=== PATIENT | male | born 1955 | race African-American/Black ===

== ENCOUNTER 2017-02-11 04:12 | Emergency (ER) | payer MEDICAID ==
[~2017-02-11] VITALS: Ht 180.3 cm; Wt 68.0 kg
[~2017-02-11 04:12] MED LIST: ALBU8.5H8 INH; CARI350T27 PO; DITXL5 PO; FOLI-43 PO; GABA-531 PO; HYDR-4100 PO; LISI10TA5 PO; MULT PO; NEU300 PO; PRO40 PO; SUCR1TAB78 PO; THIA100T13 PO
[2017-02-11 04:22] VITALS: BP_SYST 132
[2017-02-11] MEDS ORDERED: HYDROcodone/ACETAMIN 10-325 MG TAB PO ONE (05:15)
[2017-02-11 06:39] VITALS: BP_SYST 127
== END 2017-02-11 06:39 | disposition home or self-care (01) ==
LOC: SED 04:12
DX: S22.32XA Fracture of one rib, left side, initial encounter for closed fracture (principal); M54.2 Cervicalgia; J44.9 Chronic obstructive pulmonary disease, unspecified; K21.9 Gastro-esophageal reflux disease without esophagitis; I10 Essential (primary) hypertension; Z85.46 Personal history of malignant neoplasm of prostate; Z79.899 Other long term (current) drug therapy; V89.2XXA Person injured in unspecified motor-vehicle accident, traffic, initial encounter; Y93.89 Activity, other specified; Y92.410 Unspecified street and highway as the place of occurrence of the external cause; Y99.8 Other external cause status
CPT/HCPCS: 71010; 71100; 72125-TC; 99284

== ENCOUNTER 2017-09-24 17:32 | Emergency (ER) | payer MEDICAID ==
[~2017-09-24] VITALS: Ht 180.3 cm; Wt 68.0 kg
[2017-09-24 17:32] VITALS: BP_SYST 108
[2017-09-24] MEDS ORDERED: LORazepam 1 MG TABLET PO ONE (17:45)
[2017-09-24 18:05] LABS: BASOPHILS # (AUTO) 0.2 K/uL (0.0-0.2); BASOPHILS % (AUTO) 1.7 % (0.0-2.0); EOSINOPHILS % (AUTO) 0.4 % (0.0-4.0); HEMATOCRIT 43.5 % (36-54); HEMOGLOBIN 14.4 g/dL (14.0-18.0); LYMPHOCYTES # (AUTO) 2.3 K/uL (1.0-5.5); MEAN CORPUSCULAR HEMOGLOBIN 31 pg (27-31); MEAN CORPUSCULAR HGB CONC 33 % (32-36); MEAN CORPUSCULAR VOLUME 94 fL (79.0-98.0); MONOCYTES # (AUTO) 0.6 K/uL (0.0-1.0); MONOCYTES % (AUTO) 6.1 % (1.7-9.3); NEUTROPHILS # (AUTO) 7.4 K/uL (1.8-7.7); NEUTROPHILS % (AUTO) 69.8 % (40.0-70.0); PLATELET COUNT (AUTO) 227 K/uL (130-430); RED BLOOD CELL COUNT(AUTO) 4.66 MIL/uL (4.2-6.2); RED CELL DISTRIBUTION WIDTH 14.3 % (9.0-15.0); WHITE BLOOD COUNT (AUTO) 10.5 K/uL (4.8-10.8)
[2017-09-24] MEDS ORDERED: WELSR150 PO (18:11)
[2017-09-24 18:40] LABS: CALCIUM 8.7 mg/dL (8.4-11.0); CREATININE 0.84 mg/dL (0.55-1.30)
[2017-09-24 18:45] LABS: ALBUMIN 3.5 g/dL (3.4-4.8); TOTAL BILIRUBIN 0.3 mg/dL (0.0-1.0)
[2017-09-24] MEDS ORDERED: PANTOPRAZOLE SODIUM 40 MG/VIAL (PROTONIX) IVP ONE (19:00)
[2017-09-24] MEDS ORDERED: levETIRAcetam 1,000 MG in NS 100 ML IV ONE (19:00)
[2017-09-24] MEDS ORDERED: D5NS 1,000 ML IV ONE (19:00)
[2017-09-24 20:43] VITALS: BP_SYST 112
== END 2017-09-24 20:43 | disposition home or self-care (01) ==
LOC: SED 17:32
DX: E87.1 Hypo-osmolality and hyponatremia (principal); K29.70 Gastritis, unspecified, without bleeding; R03.0 Elevated blood-pressure reading, without diagnosis of hypertension; J44.9 Chronic obstructive pulmonary disease, unspecified; I10 Essential (primary) hypertension; Z85.46 Personal history of malignant neoplasm of prostate
CPT/HCPCS: 36415; 80053; 85025; 93005; 96365; 96375; 99285; C9113; G0482; J1953; J7060

== ENCOUNTER 2018-06-16 17:40 | Inpatient (IN) | payer OTHER, MEDICAID ==
[~2018-06-16] VITALS: Ht 180.3 cm; Wt 63.0 kg
[~2018-06-16 17:40] MED LIST changes: -FOLI-43 PO; -SUCR1TAB78 PO; -THIA100T13 PO; +WELSR150 PO
[2018-06-16 17:54] VITALS: BP_SYST 116
[2018-06-16] MEDS ORDERED: NACL 0.9% 1,000 ML IV ONE (18:15)
[2018-06-16 18:56] LABS: ANION GAP 9 (5-15); CALCIUM 8.8 mg/dL (8.4-11.0); CHLORIDE 95 mmol/L (98-107); CREATININE 0.92 mg/dL (0.55-1.30); GLUCOSE 110 mg/dL (70-99); POTASSIUM 3.3 mmol/L (3.5-5.1); SODIUM SERUM 131 mmol/L (136-145); UREA NITROGEN, BLOOD 13 mg/dL (8-21)
[2018-06-16 18:57] LABS: INR 0.9 (0.80-1.20); PROTHROMBIN TIME 9.7 SECS (9.5-12.5)
[2018-06-16 18:59] LABS: GFR AFRICAN AMERICAN 108 mL/min (>90)
[2018-06-16 19:02] LABS: ALANINE AMINOTRANSFERASE 169 U/L (12-78); ALBUMIN 2.2 g/dL (3.4-4.8); ASPARTATE AMINOTRANSFERASE 304 U/L (10-37); TOTAL BILIRUBIN 0.4 mg/dL (0.0-1.0)
[2018-06-16 19:06] LABS: ACETAMINOPHEN < 1 ug/mL (1-30); ALCOHOL, BLOOD < 3 mg/dL (<10)
[2018-06-16 19:51] LABS: BILIRUBIN,URINE 1+ (NEGATIVE); BLOOD, URINE 1+ (NEGATIVE); CLARITY/URINE CLOUDY (CLEAR); GLUCOSE,URINE NEGATIVE (NEGATIVE); KETONES,URINE NEGATIVE (NEGATIVE); LEUKOCYTE ESTERASE ,URINE 3+ (NEGATIVE); NITRITE, URINE POSITIVE (NEGATIVE); PROTEIN URINE TRACE (NEGATIVE)
[2018-06-16 19:57] LABS: HEMATOCRIT 41.5 % (36-54); HEMOGLOBIN 13.8 g/dL (14.0-18.0); MEAN CORPUSCULAR HEMOGLOBIN 31 pg (27-31); MEAN CORPUSCULAR HGB CONC 33 % (32-36); MEAN CORPUSCULAR VOLUME 92 fL (79.0-98.0); PLATELET COUNT (AUTO) 119 K/uL (130-430); RED BLOOD CELL COUNT(AUTO) 4.51 MIL/uL (4.2-6.2); WHITE BLOOD COUNT (AUTO) 4.4 K/uL (4.8-10.8)
[2018-06-16 19:58] LABS: BASOPHILS % (AUTO) 0.8 % (0.0-2.0); EOSINOPHILS % (AUTO) 0.7 % (0.0-4.0); LYMPHOCYTES # (AUTO) 0.7 K/uL (1.0-5.5); LYMPHOCYTES % (AUTO) 17.1 % (20.5-51.5); MONOCYTES # (AUTO) 0.6 K/uL (0.0-1.0); MONOCYTES % (AUTO) 13.4 % (1.7-9.3)
[2018-06-16 20:04] LABS: BARBITURATE, URINE NEGATIVE (NEG <=200); BENZODIAZEPINE, URINE POSITIVE (NEG <=150); CANNABINOID, URINE POSITIVE (NEG <=50); COCAINE, URINE NEGATIVE (NEG <=150); METHAMPHETAMINES SCREEN,URINE NEGATIVE (NEG <=500); OPIATE, URINE NEGATIVE (NEG <=100); PHENCYCLIDINE SCREEN,URINE NEGATIVE (NEG <=25); UR TRICYCLIC ANTIDEPRESSANTS NEGATIVE (NEG <=300); URINE AMPHETAMINE NEGATIVE (NEG <=500); URINE METHADONE NEGATIVE (NEG <=200); URINE OXYCODONE SCREEN NEGATIVE (NEG <=100); URINE PROPOXYPHENE SCREEN NEGATIVE (NEG <=300)
[2018-06-16 20:08] LABS: COLOR,URINE AMBER (YELLOW)
[2018-06-16] MEDS ORDERED: POTASSIUM CHLORIDE 20 MEQ TAB.PRT.SR PO ONE (20:15)
[2018-06-16 20:35] LABS: BACTERIA,URINE MANY /HPF (None Seen); MUCUS,URINE None Seen /LPF (None Seen); WBC,URINE 50-80 /HPF (0-3)
[2018-06-16] MEDS ORDERED: cefTRIAXone 2 GM VIAL ONE (21:25)
[2018-06-16] MEDS ORDERED: ACETAMINOPHEN 650 MG/20.3 ML UDC PO PRN (22:00)
[2018-06-16] MEDS ORDERED: HYDROcodone/ACETAMIN 10-325 MG TAB PO PRN (22:00)
[2018-06-16 22:31] VITALS: BP_SYST 131
[2018-06-16 23:12] VITALS: BP_SYST 131
[2018-06-16] MEDS: IPRATROPIUM/ALBUTEROL SULFATE 3 ML AMPUL.NEB (DUONEB) INH SCH (23:25)
[2018-06-16 23:30] VITALS: BP_SYST 130
[2018-06-17] MEDS: PANTOPRAZOLE SODIUM 40 MG TAB PO SCH (06:10)
[2018-06-17] MEDS: GABAPENTIN 300 MG CAPSULE PO SCH ×3 (06:11→20:55)
[2018-06-17] MEDS: IPRATROPIUM/ALBUTEROL SULFATE 3 ML AMPUL.NEB (DUONEB) INH SCH ×3 (07:29→23:21)
[2018-06-17 07:32] LABS: ALBUMIN 2.1 g/dL (3.4-4.8); BILIRUBIN,DIRECT 0.2 mg/dL (0.0-0.3); CALCIUM 8.3 mg/dL (8.4-11.0); CREATININE 0.7 mg/dL (0.55-1.30); POTASSIUM 3.9 mmol/L (3.5-5.1); THYROID STIMULATING HORMONE 0.86 uIu/mL (0.34-4.82); TOTAL BILIRUBIN 0.3 mg/dL (0.0-1.0)
[2018-06-17 07:56] LABS: WHITE BLOOD COUNT (AUTO) 4.2 K/uL (4.8-10.8)
[2018-06-17 07:57] LABS: EOSINOPHILS % (AUTO) 0.8 % (0.0-4.0); HEMATOCRIT 37.7 % (36-54); HEMOGLOBIN 12.4 g/dL (14.0-18.0); LYMPHOCYTES # (AUTO) 0.8 K/uL (1.0-5.5); LYMPHOCYTES % (AUTO) 18.8 % (20.5-51.5); MEAN CORPUSCULAR HEMOGLOBIN 30 pg (27-31); MEAN CORPUSCULAR HGB CONC 33 % (32-36); MEAN CORPUSCULAR VOLUME 91 fL (79.0-98.0); MONOCYTES # (AUTO) 0.7 K/uL (0.0-1.0); NEUTROPHILS # (AUTO) 2.6 K/uL (1.8-7.7); NEUTROPHILS % (AUTO) 62.4 % (40.0-70.0); PLATELET COUNT (AUTO) 130 K/uL (130-430); RED BLOOD CELL COUNT(AUTO) 4.12 MIL/uL (4.2-6.2)
[2018-06-17] MEDS: buPROPion HCL 150 MG TABLET.SA PO SCH ×2 (08:58→20:55)
[2018-06-17] MEDS: LISINOPRIL 10 MG TABLET (PRINIVIL) PO SCH (08:58)
[2018-06-17] MEDS: OXYBUTYNIN CHLORIDE 5 MG TABLET PO SCH ×4 (08:58→20:55)
[2018-06-17 09:00] VITALS: BP_SYST 104
[2018-06-17 11:26] VITALS: BP_SYST 113
[2018-06-17 15:25] VITALS: BP_SYST 104
[2018-06-17] MEDS ORDERED: GENTAMICIN 100 mg/50 mL NS 50 ML IV ONE (16:15)
[2018-06-17 20:00] VITALS: BP_SYST 114
[2018-06-18 00:21] VITALS: BP_SYST 130
[2018-06-18] MEDS: IPRATROPIUM/ALBUTEROL SULFATE 3 ML AMPUL.NEB (DUONEB) INH SCH ×3 (06:00→22:00)
[2018-06-18 06:09] LABS: CALCIUM 8.7 mg/dL (8.4-11.0); CREATININE 0.68 mg/dL (0.55-1.30); POTASSIUM 3.9 mmol/L (3.5-5.1)
[2018-06-18 06:22] LABS: BILIRUBIN,DIRECT 0.2 mg/dL (0.0-0.3); TOTAL BILIRUBIN 0.2 mg/dL (0.0-1.0)
[2018-06-18] MEDS: PANTOPRAZOLE SODIUM 40 MG TAB PO SCH (06:22)
[2018-06-18] MEDS: GABAPENTIN 300 MG CAPSULE PO SCH ×3 (06:22→20:55)
[2018-06-18 07:47] LABS: HEMATOCRIT 35.4 % (36-54); HEMOGLOBIN 11.8 g/dL (14.0-18.0); MEAN CORPUSCULAR VOLUME 91 fL (79.0-98.0); RED BLOOD CELL COUNT(AUTO) 3.88 MIL/uL (4.2-6.2); WHITE BLOOD COUNT (AUTO) 5.3 K/uL (4.8-10.8)
[2018-06-18 07:48] LABS: MEAN CORPUSCULAR HEMOGLOBIN 30 pg (27-31); MEAN CORPUSCULAR HGB CONC 33 % (32-36); PLATELET COUNT (AUTO) 162 K/uL (130-430)
[2018-06-18 07:49] LABS: BASOPHILS % (AUTO) 0.8 % (0.0-2.0); EOSINOPHILS # (AUTO) 0.1 K/uL (0.0-0.4); EOSINOPHILS % (AUTO) 1.9 % (0.0-4.0); LYMPHOCYTES # (AUTO) 1.4 K/uL (1.0-5.5); LYMPHOCYTES % (AUTO) 27.1 % (20.5-51.5); MONOCYTES % (AUTO) 18.1 % (1.7-9.3); NEUTROPHILS # (AUTO) 2.7 K/uL (1.8-7.7); NEUTROPHILS % (AUTO) 52.1 % (40.0-70.0)
[2018-06-18 08:21] LABS: CKMB RELATIVE INDEX 0.3 (0.0-2.9)
[2018-06-18 09:00] VITALS: BP_SYST 110
[2018-06-18] MEDS: buPROPion HCL 150 MG TABLET.SA PO SCH ×2 (09:00→20:55)
[2018-06-18] MEDS: OXYBUTYNIN CHLORIDE 5 MG TABLET PO SCH ×4 (09:01→20:55)
[2018-06-18] MEDS: LISINOPRIL 10 MG TABLET (PRINIVIL) PO SCH (09:03)
[2018-06-18 12:33] VITALS: BP_SYST 117
[2018-06-18 16:05] VITALS: BP_SYST 126
[2018-06-18 20:00] VITALS: BP_SYST 104
[2018-06-19 00:56] VITALS: BP_SYST 115
[2018-06-19] MEDS: PANTOPRAZOLE SODIUM 40 MG TAB PO SCH (06:06)
[2018-06-19] MEDS: GABAPENTIN 300 MG CAPSULE PO SCH ×3 (06:06→21:02)
[2018-06-19] MEDS: IPRATROPIUM/ALBUTEROL SULFATE 3 ML AMPUL.NEB (DUONEB) INH SCH ×2 (07:30→14:00)
[2018-06-19 08:00] VITALS: BP_SYST 137
[2018-06-19 08:08] LABS: HEPATITIS A AB, IgM Negative (Negative); HEPATITIS B CORE AB, IgM Negative (Negative); HEPATITIS B SURFACE AG Negative (Negative)
[2018-06-19] MEDS: buPROPion HCL 150 MG TABLET.SA PO SCH ×2 (09:08→21:02)
[2018-06-19] MEDS: OXYBUTYNIN CHLORIDE 5 MG TABLET PO SCH ×4 (09:08→21:02)
[2018-06-19] MEDS: LISINOPRIL 10 MG TABLET (PRINIVIL) PO SCH (09:08)
[2018-06-19 13:06] VITALS: BP_SYST 116
[2018-06-19 15:27] VITALS: BP_SYST 116
[2018-06-19] MEDS ORDERED: GADOPENTETATE DIMEGLUMINE 15 ML VIAL IV ONE (16:24)
[2018-06-19 16:47] VITALS: BP_SYST 116
[2018-06-19 20:00] VITALS: BP_SYST 135
[2018-06-20 00:22] VITALS: BP_SYST 128
[2018-06-20] MEDS: IPRATROPIUM/ALBUTEROL SULFATE 3 ML AMPUL.NEB (DUONEB) INH SCH ×3 (06:00→23:30)
[2018-06-20] MEDS: GABAPENTIN 300 MG CAPSULE PO SCH ×3 (06:07→21:24)
[2018-06-20] MEDS: PANTOPRAZOLE SODIUM 40 MG TAB PO SCH (06:07)
[2018-06-20 06:15] LABS: ALBUMIN 2.3 g/dL (3.4-4.8); BILIRUBIN,DIRECT 0.1 mg/dL (0.0-0.3); CALCIUM 9.1 mg/dL (8.4-11.0); CREATININE 0.63 mg/dL (0.55-1.30); POTASSIUM 4.2 mmol/L (3.5-5.1); TOTAL BILIRUBIN 0.3 mg/dL (0.0-1.0)
[2018-06-20 08:19] LABS: HEMATOCRIT 36.1 % (36-54); LYMPHOCYTES % (AUTO) 34.1 % (20.5-51.5); MEAN CORPUSCULAR HEMOGLOBIN 30 pg (27-31); MEAN CORPUSCULAR HGB CONC 33 % (32-36); MEAN CORPUSCULAR VOLUME 91 fL (79.0-98.0); PLATELET COUNT (AUTO) 251 K/uL (130-430); RED BLOOD CELL COUNT(AUTO) 3.97 MIL/uL (4.2-6.2); RED CELL DISTRIBUTION WIDTH 14.7 % (9.0-15.0); WHITE BLOOD COUNT (AUTO) 6.5 K/uL (4.8-10.8)
[2018-06-20 08:20] LABS: BASOPHILS # (AUTO) 0.1 K/uL (0.0-0.2); BASOPHILS % (AUTO) 0.9 % (0.0-2.0); EOSINOPHILS # (AUTO) 0.1 K/uL (0.0-0.4); LYMPHOCYTES # (AUTO) 2.2 K/uL (1.0-5.5); MONOCYTES # (AUTO) 0.7 K/uL (0.0-1.0); NEUTROPHILS # (AUTO) 3.4 K/uL (1.8-7.7)
[2018-06-20 08:55] VITALS: BP_SYST 109
[2018-06-20] MEDS: OXYBUTYNIN CHLORIDE 5 MG TABLET PO SCH ×4 (09:14→21:24)
[2018-06-20] MEDS: buPROPion HCL 150 MG TABLET.SA PO SCH ×2 (09:15→21:24)
[2018-06-20] MEDS: LISINOPRIL 10 MG TABLET (PRINIVIL) PO SCH (09:15)
[2018-06-20 11:51] VITALS: BP_SYST 126
[2018-06-20 15:20] VITALS: BP_SYST 107
[2018-06-20 20:06] VITALS: BP_SYST 127
[2018-06-21 01:21] VITALS: BP_SYST 106
[2018-06-21] MEDS: PANTOPRAZOLE SODIUM 40 MG TAB PO SCH (06:32)
[2018-06-21] MEDS: GABAPENTIN 300 MG CAPSULE PO SCH (06:33)
[2018-06-21] MEDS: IPRATROPIUM/ALBUTEROL SULFATE 3 ML AMPUL.NEB (DUONEB) INH SCH (07:35)
[2018-06-21 07:50] LABS: ALBUMIN 2.2 g/dL (3.4-4.8); BILIRUBIN,DIRECT 0.1 mg/dL (0.0-0.3); TOTAL BILIRUBIN 0.2 mg/dL (0.0-1.0)
[2018-06-21 08:13] VITALS: BP_SYST 106
[2018-06-21] MEDS: OXYBUTYNIN CHLORIDE 5 MG TABLET PO SCH ×2 (08:28→12:27)
[2018-06-21] MEDS: LISINOPRIL 10 MG TABLET (PRINIVIL) PO SCH (08:28)
[2018-06-21] MEDS: buPROPion HCL 150 MG TABLET.SA PO SCH (08:29)
[2018-06-21 08:30] VITALS: BP_SYST 118
[2018-06-21 11:27] VITALS: BP_SYST 113
[2018-06-21] MEDS ORDERED: CIPR-211 PO (11:35)
[2018-06-21 12:36] VITALS: BP_SYST 113
== END 2018-06-21 13:30 | DRG 871 ==
LOC: SED 17:40 → SMU 21:52
PROVIDERS: ADMIT Internal Medicine; ATTEND Internal Medicine
DX: A41.51 Sepsis due to Escherichia coli [E. coli] (principal); E43 Unspecified severe protein-calorie malnutrition; N10 Acute pyelonephritis; J44.1 Chronic obstructive pulmonary disease with (acute) exacerbation; Z68.1 Body mass index [BMI] 19.9 or less, adult; E87.8 Other disorders of electrolyte and fluid balance, not elsewhere classified; G72.9 Myopathy, unspecified; K22.5 Diverticulum of esophagus, acquired; N28.1 Cyst of kidney, acquired; E78.00 Pure hypercholesterolemia, unspecified; G62.9 Polyneuropathy, unspecified; I10 Essential (primary) hypertension; K21.9 Gastro-esophageal reflux disease without esophagitis; N31.9 Neuromuscular dysfunction of bladder, unspecified; F17.210 Nicotine dependence, cigarettes, uncomplicated; N40.0 Benign prostatic hyperplasia without lower urinary tract symptoms; R13.10 Dysphagia, unspecified; Z90.79 Acquired absence of other genital organ(s)
CPT/HCPCS: 36415; 71045; 72158; 74220-TC; 76700-TC; 76770; 80048; 80053; 80074; 80076; 80307; 81000-TC; 82085; 82105; 82140-TC; 82550-TC; 82553-TC; 82607; 82746; 83605; 83735-TC; 84443-TC; 84484; 85025; 85610-TC; 85651-TC; 85730-TC; 86308-TC; 86665; 86694; 87040-TC; 87086; 87186-TC; 93005; 94640; 94760; 96361; 96365; 97110-GP; 97116-GP; 97530-GP; 99285; A9579; G0480; G0481; G0482; J0696; J1580; J7060; J7620

== ENCOUNTER 2019-03-07 13:59 | Inpatient (IN) | payer OTHER, MEDICAID ==
[~2019-03-07] VITALS: Ht 180.3 cm; Wt 73.0 kg
[~2019-03-07 13:59] MED LIST changes: -CARI350T27 PO; +CIPR-211 PO
[2019-03-07 14:32] VITALS: BP_SYST 98
[2019-03-07] MEDS ORDERED: NACL 0.9% 1,000 ML IV ONE (14:45)
[2019-03-07 15:14] LABS: BASOPHILS # (AUTO) 0.1 K/uL (0.0-0.2); BASOPHILS % (AUTO) 0.7 % (0.0-2.0); EOSINOPHILS # (AUTO) 0.1 K/uL (0.0-0.4); EOSINOPHILS % (AUTO) 0.6 % (0.0-4.0); HEMATOCRIT 35.5 % (36-54); HEMOGLOBIN 11.4 g/dL (14.0-18.0); LYMPHOCYTES # (AUTO) 1.2 K/uL (1.0-5.5); LYMPHOCYTES % (AUTO) 8.6 % (20.5-51.5); MEAN CORPUSCULAR HEMOGLOBIN 27 pg (27-31); MEAN CORPUSCULAR HGB CONC 32 % (32-36); MEAN CORPUSCULAR VOLUME 84 fL (79.0-98.0); MONOCYTES # (AUTO) 0.6 K/uL (0.0-1.0); MONOCYTES % (AUTO) 4.2 % (1.7-9.3); NEUTROPHILS # (AUTO) 12.3 K/uL (1.8-7.7); NEUTROPHILS % (AUTO) 85.9 % (40.0-70.0); PLATELET COUNT (AUTO) 221 K/uL (130-430); RED BLOOD CELL COUNT(AUTO) 4.23 MIL/uL (4.2-6.2); RED CELL DISTRIBUTION WIDTH 16.1 % (9.0-15.0); WHITE BLOOD COUNT (AUTO) 14.3 K/uL (4.8-10.8)
[2019-03-07 15:26] LABS: CALCIUM 8.9 mg/dL (8.4-11.0); CREATININE 1.54 mg/dL (0.55-1.30); POTASSIUM 4.3 mmol/L (3.5-5.1)
[2019-03-07 15:32] LABS: ALBUMIN 3.3 g/dL (3.4-4.8); TOTAL BILIRUBIN 0.2 mg/dL (0.0-1.0)
[2019-03-07] MEDS ORDERED: IOHEXOL 350 mgI/mL, 150 ML INFUS..BTL IV ONE (17:19)
[2019-03-07] MEDS ORDERED: fentaNYL CITRATE/PF 100 MCG/2 ML AMP IVP ONE (18:00)
[2019-03-07] MEDS ORDERED: ALBUTEROL MDI INHALATION 8 GM INH INH SCH (20:15)
[2019-03-07] MEDS ORDERED: HEPARIN 25,000 UNITS/D5W 250ML 250 ML IV PRN (20:15)
[2019-03-07] MEDS ORDERED: DOCUSATE SODIUM 100 MG CAPSULE PO PRN (20:15)
[2019-03-07] MEDS ORDERED: LORazepam 2 MG/ML VIAL IVP PRN (20:15)
[2019-03-07] MEDS ORDERED: ONDANSETRON HCL 4 MG/2 ML VIAL IVP PRN (20:15)
[2019-03-07] MEDS ORDERED: POTASSIUM CHLORIDE 20 MEQ TAB.PRT.SR PO PRN (20:15)
[2019-03-07] MEDS ORDERED: ZOLPIDEM TARTRATE 5 MG TABLET PO PRN (20:15)
[2019-03-07] MEDS ORDERED: MAGNESIUM SULFATE 50 ML IV PRN (20:15)
[2019-03-07] MEDS ORDERED: MUPIROCIN 2% TOPICAL OINTMENT 22 GM NS PRN (20:15)
[2019-03-07] MEDS ORDERED: MORPHINE 2 MG/ML INJ. SYRINGE IVP PRN ×2 (20:15)
[2019-03-07] MEDS ORDERED: ACETAMINOPHEN 325 MG TABLET PO PRN (20:15)
[2019-03-07] MEDS ORDERED: ACETAMINOPHEN 500 MG TABLET PO ONE (20:45)
[2019-03-07] MEDS ORDERED: OXYBUTYNIN CHLORIDE 5 MG XL TAB PO SCH (21:00)
[2019-03-07] MEDS: NACL 0.9% 1,000 ML IV SCH (21:04)
[2019-03-07] MEDS ORDERED: HEPARIN SODIUM,PORCINE 5000 UNITS/ML VIAL ONE (21:14)
[2019-03-07] MEDS: IPRATROPIUM/ALBUTEROL SULFATE 3 ML AMPUL.NEB (DUONEB) INH SCH (21:40)
[2019-03-07 21:59] VITALS: BP_SYST 98
[2019-03-07 23:00] LABS: INR 1.1 (0.80-1.20); PROTHROMBIN TIME 10.9 SECS (9.5-12.5)
[2019-03-08 03:02] VITALS: BP_SYST 142
[2019-03-08] MEDS ORDERED: HEPARIN SODIUM,PORCINE 5000 UNITS/ML VIAL SUBCUT SCH ×2 (05:00→06:00)
[2019-03-08] MEDS: NACL 0.9% 1,000 ML IV SCH ×2 (05:17→15:07)
[2019-03-08] MEDS: PANTOPRAZOLE SODIUM 40 MG TAB PO SCH (06:39)
[2019-03-08 07:25] LABS: BASOPHILS # (AUTO) 0.1 K/uL (0.0-0.2); BASOPHILS % (AUTO) 0.4 % (0.0-2.0); EOSINOPHILS # (AUTO) 0.3 K/uL (0.0-0.4); EOSINOPHILS % (AUTO) 1.9 % (0.0-4.0); HEMATOCRIT 29.9 % (36-54); HEMOGLOBIN 9.7 g/dL (14.0-18.0); MEAN CORPUSCULAR HEMOGLOBIN 27 pg (27-31); MEAN CORPUSCULAR HGB CONC 33 % (32-36); MEAN CORPUSCULAR VOLUME 83 fL (79.0-98.0); MONOCYTES # (AUTO) 0.5 K/uL (0.0-1.0); NEUTROPHILS # (AUTO) 10.6 K/uL (1.8-7.7); NEUTROPHILS % (AUTO) 78.7 % (40.0-70.0); PLATELET COUNT (AUTO) 190 K/uL (130-430); RED BLOOD CELL COUNT(AUTO) 3.59 MIL/uL (4.2-6.2); RED CELL DISTRIBUTION WIDTH 15.9 % (9.0-15.0); WHITE BLOOD COUNT (AUTO) 13.5 K/uL (4.8-10.8)
[2019-03-08 07:40] LABS: CALCIUM 8.3 mg/dL (8.4-11.0); CREATININE 0.87 mg/dL (0.55-1.30); POTASSIUM 4.3 mmol/L (3.5-5.1)
[2019-03-08 08:00] VITALS: BP_SYST 148
[2019-03-08] MEDS: IPRATROPIUM/ALBUTEROL SULFATE 3 ML AMPUL.NEB (DUONEB) INH SCH ×3 (08:01→20:03)
[2019-03-08] MEDS ORDERED: GABAPENTIN 300 MG CAPSULE PO ONE (10:15)
[2019-03-08] MEDS ORDERED: OXYBUTYNIN CHLORIDE 5 MG TABLET PO ONE (10:30)
[2019-03-08 12:00] VITALS: BP_SYST 141
[2019-03-08] MEDS ORDERED: ENOXAPARIN SODIUM 40 MG/0.4 ML SYRINGE SUBCUT ONE (12:00)
[2019-03-08] MEDS: cefTRIAXone 1 GM in D5W 50 ML IV SCH (13:16)
[2019-03-08] MEDS: OXYBUTYNIN CHLORIDE 5 MG TABLET PO SCH ×3 (13:16→21:11)
[2019-03-08] MEDS: GABAPENTIN 300 MG CAPSULE PO SCH ×2 (15:06→21:10)
[2019-03-08] MEDS: MORPHINE 4 MG/ML INJ. SYRINGE IVP PRN ×2 (15:12→22:45)
[2019-03-08 16:00] VITALS: BP_SYST 157
[2019-03-08 17:22] LABS: BILIRUBIN,URINE NEGATIVE (NEGATIVE); BLOOD, URINE NEGATIVE (NEGATIVE); COLOR,URINE YELLOW (YELLOW); GLUCOSE,URINE NEGATIVE (NEGATIVE); KETONES,URINE NEGATIVE (NEGATIVE); LEUKOCYTE ESTERASE ,URINE TRACE (NEGATIVE); NITRITE, URINE NEGATIVE (NEGATIVE); PH,URINE 6.5 (5.0-8.0); PROTEIN URINE NEGATIVE (NEGATIVE); UROBILINOGEN,URINE 0.2 (0.2-1.0)
[2019-03-08 17:51] LABS: CLARITY/URINE SLIGHTLY HAZY (CLEAR)
[2019-03-08 18:22] LABS: BACTERIA,URINE MANY /HPF (None Seen); MUCUS,URINE None Seen /LPF (None Seen); RBC,URINE NONE SEEN /HPF (0-3)
[2019-03-08 20:00] VITALS: BP_SYST 119
[2019-03-08] MEDS: buPROPion HCL 150 MG TABLET.SA PO SCH ×2 (21:11→21:13)
[2019-03-09] MEDS: NACL 0.9% 1,000 ML IV SCH ×2 (00:03→13:18)
[2019-03-09 00:26] VITALS: BP_SYST 126
[2019-03-09] MEDS: PANTOPRAZOLE SODIUM 40 MG TAB PO SCH (06:06)
[2019-03-09 08:08] LABS: BASOPHILS # (AUTO) 0.1 K/uL (0.0-0.2); BASOPHILS % (AUTO) 0.8 % (0.0-2.0); EOSINOPHILS # (AUTO) 0.3 K/uL (0.0-0.4); EOSINOPHILS % (AUTO) 2.8 % (0.0-4.0); HEMATOCRIT 30.2 % (36-54); LYMPHOCYTES # (AUTO) 1.5 K/uL (1.0-5.5); LYMPHOCYTES % (AUTO) 16.7 % (20.5-51.5); MEAN CORPUSCULAR HEMOGLOBIN 28 pg (27-31); MEAN CORPUSCULAR HGB CONC 33 % (32-36); MEAN CORPUSCULAR VOLUME 83 fL (79.0-98.0); MONOCYTES # (AUTO) 0.5 K/uL (0.0-1.0); MONOCYTES % (AUTO) 5.8 % (1.7-9.3); NEUTROPHILS # (AUTO) 6.5 K/uL (1.8-7.7); NEUTROPHILS % (AUTO) 73.9 % (40.0-70.0); PLATELET COUNT (AUTO) 199 K/uL (130-430); RED BLOOD CELL COUNT(AUTO) 3.65 MIL/uL (4.2-6.2); RED CELL DISTRIBUTION WIDTH 15.3 % (9.0-15.0); WHITE BLOOD COUNT (AUTO) 8.8 K/uL (4.8-10.8)
[2019-03-09 08:30] VITALS: BP_SYST 154
[2019-03-09] MEDS: IPRATROPIUM/ALBUTEROL SULFATE 3 ML AMPUL.NEB (DUONEB) INH SCH (09:00)
[2019-03-09 09:01] LABS: CALCIUM 8.7 mg/dL (8.4-11.0); CREATININE 0.72 mg/dL (0.55-1.30)
[2019-03-09] MEDS: OXYBUTYNIN CHLORIDE 5 MG TABLET PO SCH ×4 (09:16→21:30)
[2019-03-09] MEDS: GABAPENTIN 300 MG CAPSULE PO SCH ×3 (09:16→21:29)
[2019-03-09] MEDS: buPROPion HCL 150 MG TABLET.SA PO SCH ×2 (09:16→21:29)
[2019-03-09] MEDS: ENOXAPARIN SODIUM 40 MG/0.4 ML SYRINGE SUBCUT SCH (09:17)
[2019-03-09] MEDS: MORPHINE 4 MG/ML INJ. SYRINGE IVP PRN ×3 (09:27→22:23)
[2019-03-09 12:49] VITALS: BP_SYST 146
[2019-03-09] MEDS: cefTRIAXone 1 GM in D5W 50 ML IV SCH (13:18)
[2019-03-09 16:46] VITALS: BP_SYST 158
[2019-03-09 21:00] VITALS: BP_SYST 151
[2019-03-10 01:18] VITALS: BP_SYST 135
[2019-03-10] MEDS: NACL 0.9% 1,000 ML IV SCH (03:34)
[2019-03-10] MEDS: PANTOPRAZOLE SODIUM 40 MG TAB PO SCH (06:09)
[2019-03-10 08:30] LABS: BASOPHILS # (AUTO) 0.1 K/uL (0.0-0.2); EOSINOPHILS # (AUTO) 0.3 K/uL (0.0-0.4); EOSINOPHILS % (AUTO) 3.8 % (0.0-4.0); HEMATOCRIT 31.7 % (36-54); HEMOGLOBIN 10.4 g/dL (14.0-18.0); LYMPHOCYTES # (AUTO) 1.8 K/uL (1.0-5.5); LYMPHOCYTES % (AUTO) 21.7 % (20.5-51.5); MEAN CORPUSCULAR HEMOGLOBIN 27 pg (27-31); MEAN CORPUSCULAR HGB CONC 33 % (32-36); MEAN CORPUSCULAR VOLUME 83 fL (79.0-98.0); MONOCYTES # (AUTO) 0.5 K/uL (0.0-1.0); MONOCYTES % (AUTO) 6.1 % (1.7-9.3); NEUTROPHILS # (AUTO) 5.4 K/uL (1.8-7.7); NEUTROPHILS % (AUTO) 67.4 % (40.0-70.0); PLATELET COUNT (AUTO) 205 K/uL (130-430); RED BLOOD CELL COUNT(AUTO) 3.84 MIL/uL (4.2-6.2); RED CELL DISTRIBUTION WIDTH 15.1 % (9.0-15.0); WHITE BLOOD COUNT (AUTO) 8.1 K/uL (4.8-10.8)
[2019-03-10 08:41] LABS: CALCIUM 8.6 mg/dL (8.4-11.0); CREATININE 0.67 mg/dL (0.55-1.30)
[2019-03-10] MEDS: ENOXAPARIN SODIUM 40 MG/0.4 ML SYRINGE SUBCUT SCH (08:54)
[2019-03-10] MEDS: GABAPENTIN 300 MG CAPSULE PO SCH ×2 (08:54→15:06)
[2019-03-10] MEDS: buPROPion HCL 150 MG TABLET.SA PO SCH (08:54)
[2019-03-10] MEDS: OXYBUTYNIN CHLORIDE 5 MG TABLET PO SCH ×2 (08:54→13:15)
[2019-03-10] MEDS: MORPHINE 4 MG/ML INJ. SYRINGE IVP PRN (09:04)
[2019-03-10 12:00] VITALS: BP_SYST 159
[2019-03-10] MEDS ORDERED: VANCOMYCIN HCL 1,000 MG in NS 250 ML IV SCH (13:00)
[2019-03-10 16:57] VITALS: BP_SYST 146
[2019-03-10] MEDS ORDERED: METOPROLOL TARTRATE 25 MG TABLET PO SCH (21:00)
[2019-03-13 04:06] LABS: CHLAMYDIA TRACHOMATIS NAA Negative (Negative); NEISSERIA GONORRHOEAE NAA Negative (Negative)
== END 2019-03-10 19:45 | disposition left against medical advice (07) | DRG 177 ==
LOC: SED 13:59 → STU 19:52 → SIC 21:14 → STU 23:58 → SMU 03-09 12:50
PROVIDERS: ADMIT General Practice; ATTEND General Practice
DX: J15.212 Pneumonia due to Methicillin resistant Staphylococcus aureus (principal); N17.0 Acute kidney failure with tubular necrosis; J44.1 Chronic obstructive pulmonary disease with (acute) exacerbation; E44.1 Mild protein-calorie malnutrition; R78.81 Bacteremia; J44.0 Chronic obstructive pulmonary disease with (acute) lower respiratory infection; R65.10 Systemic inflammatory response syndrome (SIRS) of non-infectious origin without acute organ dysfunction; B95.62 Methicillin resistant Staphylococcus aureus infection as the cause of diseases classified elsewhere; D64.9 Anemia, unspecified; G62.9 Polyneuropathy, unspecified; G89.29 Other chronic pain; I10 Essential (primary) hypertension; K21.9 Gastro-esophageal reflux disease without esophagitis; F32.9 Major depressive disorder, single episode, unspecified; M47.816 Spondylosis without myelopathy or radiculopathy, lumbar region; Z68.22 Body mass index [BMI] 22.0-22.9, adult; Z85.46 Personal history of malignant neoplasm of prostate; Z87.891 Personal history of nicotine dependence; Z78.9 Other specified health status; Z79.899 Other long term (current) drug therapy
CPT/HCPCS: 36415; 36600; 71045; 78579; 78580-TC; 80048; 80053; 81000-TC; 82550-TC; 82803-TC; 82962; 83036; 83605; 83735-TC; 83880; 84484; 85025; 85379; 85610-TC; 85730-TC; 86710; 87040-TC; 87081; 87086; 87186-TC; 87491; 87591; 93005; 93306; 93970; 96361; 96374; 99285; A9539; A9540; G0378; J0696; J1644; J1650; J2270; J3010; J3370; J7030; J7050; J7060; J7620; Q9967

== ENCOUNTER 2019-03-13 19:18 | Inpatient (IN) | payer OTHER, MEDICAID ==
[~2019-03-13] VITALS: Ht 180.3 cm; Wt 67.1 kg
[2019-03-13 19:27] VITALS: BP_SYST 147
--- NOTE | 2019-03-13 19:30 | NUR ---
Patient to ER bed 06 for evaluation. Side rails up.
--- NOTE | 2019-03-13 20:10 | NUR ---
ER Dr. Gibson at bedside examining patient.
[2019-03-13] MEDS ORDERED: NACL 0.9% 1,000 ML IV ONE (20:13)
[2019-03-13] MEDS ORDERED: VANCOMYCIN HCL 1,000 MG in D5W 250 ML IV ONE (20:15)
--- NOTE | 2019-03-13 20:30 | NUR ---
X-ray at bedside.
[2019-03-13] MEDS ORDERED: VANCOMYCIN HCL 1000 MG/VIAL IV ONE (21:07)
--- NOTE | 2019-03-13 21:10 | NUR ---
# 22 gauge angiocath placed to LHA. Use of asceptic technique. Opsite placed over site. Blood return noted. Blood for lab drawn from site. Flushed with 10 cc of normal saline. No evidence of infiltration noted. Patient tolerated well.
--- NOTE | 2019-03-13 21:25 | NUR ---
Pt provided with warm blanket, sandwich with chips and fruit, and grape juice.
--- NOTE | 2019-03-13 21:35 | NUR ---
Pt c/o lower back pain 11/21. Dr. Gibson notified.
[2019-03-13 21:39] LABS: BASOPHILS # (AUTO) 0.1 K/uL (0.0-0.2); BASOPHILS % (AUTO) 0.8 % (0.0-2.0); EOSINOPHILS # (AUTO) 0.2 K/uL (0.0-0.4); HEMOGLOBIN 9.9 g/dL (14.0-18.0); LYMPHOCYTES % (AUTO) 23.9 % (20.5-51.5); MEAN CORPUSCULAR HEMOGLOBIN 28 pg (27-31); MEAN CORPUSCULAR HGB CONC 33 % (32-36); MEAN CORPUSCULAR VOLUME 84 fL (79.0-98.0); MONOCYTES # (AUTO) 0.4 K/uL (0.0-1.0); NEUTROPHILS # (AUTO) 5.7 K/uL (1.8-7.7); NEUTROPHILS % (AUTO) 68.3 % (40.0-70.0); PLATELET COUNT (AUTO) 219 K/uL (130-430); RED BLOOD CELL COUNT(AUTO) 3.56 MIL/uL (4.2-6.2); RED CELL DISTRIBUTION WIDTH 15.4 % (9.0-15.0); WHITE BLOOD COUNT (AUTO) 8.3 K/uL (4.8-10.8)
[2019-03-13 21:48] LABS: CALCIUM 8.7 mg/dL (8.4-11.0); CREATININE 0.82 mg/dL (0.55-1.30); POTASSIUM 4.3 mmol/L (3.5-5.1)
[2019-03-13] MEDS ORDERED: KETOROLAC TROMETHAMINE 15 MG VIAL IVP ONE (21:50)
--- NOTE | 2019-03-13 21:50 | NUR ---
Pt resting quietly with eyes closed, even and non-labored respirations, VSS. Toradol held at this time.
[2019-03-13 21:54] LABS: ALBUMIN 2.9 g/dL (3.4-4.8); TOTAL BILIRUBIN 0.1 mg/dL (0.0-1.0)
--- NOTE | 2019-03-13 23:00 | NUR ---
Pt resting quietly with even and nono-labored respirations, VSS. Upon taking V/S, pt awakens and c/o 8/10 to lower back. Pt to be medicated with Toradol as previously ordered.
--- NOTE | 2019-03-13 23:52 | NUR ---
Patient will be admitted to care of Dr. Nicolas Trinidad. Admitted to Med/Surg unit. Will go to room 109A. Belongings list completed. Complete and up to date summary report printed. SBAR report to be given at bedside with opportunity for questions.
[2019-03-13] MEDS ORDERED: KETOROLAC TROMETHAMINE 15 MG VIAL ONE (23:58)
[2019-03-14] VITALS (7 sets, daily range): BP systolic 133–167
--- NOTE | 2019-03-14 00:13 | NUR ---
ADMIT NOTE Received pt from ER to the floor with a diagnosis of SEPSIS. Admission process initiated. patient oriented to pain management, safety and call light-teach back done.
--- NOTE | 2019-03-14 00:35 | NUR ---
CONSULTATION PAGED/CALLED Reason for Consultation: SEPSIS Person Who was Notified: JAIME Consulting Physician: Stabilizer Operator Specialty: Ordering Physician: MORNING CONSULT
--- NOTE | 2019-03-14 03:52 | NUR ---
RN ROUNDS RECEIVE REPORT FROM RICHARD CAPUTO, PATIENT ASLEEP AT THIS TIME, NO SIGNS OF RESPIRATORY DISTRESS AND DISCOMFORT NOTED, BREATHING EVEN AND UNLABORED. IVF INFUSING WELL, PATENCY NOTED. ON CONTACT PRECAUTION. SAFETY PRECAUTIONS IN PLACE, BED ALARM ON. CALL LIGHT WITHIN REACH. WILL CONTINUE TO MONITOR.
--- NOTE | 2019-03-14 05:25 | NUR ---
RN ROUNDS PATIENT ASLEEP AT THIS TIME, NO SIGNS OF RESPIRATORY DISTRESS AND DISCOMFORT NOTED, BREATHING EVEN AND UNLABORED. HOB RAISED. IVF INFUSING WELL, PATENCY NOTED. ON CONTACT PRECAUTION. SAFETY PRECAUTIONS IN PLACE, BED ALARM ON. CALL LIGHT WITHIN REACH. WILL CONTINUE TO MONITOR.
--- NOTE | 2019-03-14 06:54 | NUR ---
CLOSING NOTES Patient asleep at this time. No signs of respiratory distress and discomfort noted. Breathing even and unlabored. Safety precautions in place, bed alarm on. Call light within reach. All needs met throughout the shift. Will continue to monitor until endorse to oncoming shift nurse for continuity of care.
--- NOTE | 2019-03-14 07:20 | NUR ---
Nurse Notes: report from the night nurse Yadi Crooks RN. patient is resting in bed, patient wants to sleep. In no respiratory distress.
[2019-03-14] MEDS ORDERED: HYDROcodone/ACETAMIN 5-325 MG TAB (NORCO/ VICODIN) PO PRN (10:15)
[2019-03-14] MEDS ORDERED: ACETAMINOPHEN 325 MG TABLET PO PRN (10:15)
[2019-03-14] MEDS: HYDROcodone/ACETAMIN 10-325 MG TAB PO PRN ×2 (10:40→18:37)
[2019-03-14] MEDS ORDERED: DOXYCYCLINE HYCLATE 100 MG CAPSULE PO ONE (11:15)
[2019-03-14] MEDS ORDERED: LISINOPRIL 10 MG TABLET (PRINIVIL) PO ONE (12:30)
[2019-03-14] MEDS ORDERED: MULTIVITAMINS TAB 1 TABLET PO ONE (12:30)
[2019-03-14] MEDS ORDERED: buPROPion HCL 150 MG TABLET.SA PO ONE (12:30)
[2019-03-14] MEDS ORDERED: PANTOPRAZOLE SODIUM 40 MG TAB PO ONE (12:30)
[2019-03-14] MEDS: GABAPENTIN 300 MG CAPSULE PO SCH ×2 (12:51→22:46)
--- NOTE | 2019-03-14 12:52 | NUR ---
Nurse Notes: was able to get his medication reconsiliation ordered, was seen by Infection disease MD, said okay to take all his medications.
[2019-03-14] MEDS: OXYBUTYNIN CHLORIDE 5 MG TABLET PO SCH ×3 (12:53→21:00)
[2019-03-14] MEDS ORDERED: VANCOMYCIN HCL 1,250 MG in NS 250 ML IV ONE (13:30)
[2019-03-14] MEDS ORDERED: GABAPENTIN 300 MG CAPSULE PO SCH (15:00)
[2019-03-14] MEDS ORDERED: ONDANSETRON HCL 4 MG/2 ML VIAL IVP PRN (16:45)
[2019-03-14] MEDS ORDERED: ALBUTEROL SULFATE 0.083% 2.5 MG/3 ML VIAL.NEB INH PRN (16:45)
--- NOTE | 2019-03-14 19:30 | NUR ---
Nurse Notes: report given to PATITO Choi. Patient was medicated for pain with [place] 10/325, for pain 11/21/ IV heplock only for IV antibiotics
[2019-03-14] MEDS ORDERED: CIPROFLOXACIN HCL 500 MG TABLET PO SCH (21:00)
[2019-03-14] MEDS ORDERED: NORMAL SALINE 5 ML DISP.SYRIN IVF SCH (22:00)
[2019-03-14] MEDS: DOXYCYCLINE HYCLATE 100 MG CAPSULE PO SCH (22:45)
[2019-03-14] MEDS: NORMAL SALINE 5 ML DISP.SYRIN IVF SCH (22:48)
[2019-03-14] MEDS: buPROPion HCL 150 MG TABLET.SA PO SCH (22:50)
[2019-03-15] VITALS: BP_SYST 133
[2019-03-15] MEDS ORDERED: VANCOMYCIN HCL 500 MG/VIAL IV ONE (02:58)
[2019-03-15] MEDS ORDERED: VANCOMYCIN HCL 1000 MG/VIAL IV ONE (02:58)
[2019-03-15 04:00] VITALS: BP_SYST 133; BP_SYST 142
[2019-03-15] MEDS: NORMAL SALINE 5 ML DISP.SYRIN IVF SCH ×3 (06:00→21:15)
[2019-03-15 07:09] LABS: BASOPHILS # (AUTO) 0.1 K/uL (0.0-0.2); BASOPHILS % (AUTO) 0.8 % (0.0-2.0); EOSINOPHILS # (AUTO) 0.2 K/uL (0.0-0.4); EOSINOPHILS % (AUTO) 2.2 % (0.0-4.0); HEMATOCRIT 29.1 % (36-54); HEMOGLOBIN 9.7 g/dL (14.0-18.0); LYMPHOCYTES # (AUTO) 2.3 K/uL (1.0-5.5); LYMPHOCYTES % (AUTO) 29.2 % (20.5-51.5); MEAN CORPUSCULAR HEMOGLOBIN 27 pg (27-31); MEAN CORPUSCULAR HGB CONC 33 % (32-36); MEAN CORPUSCULAR VOLUME 82 fL (79.0-98.0); MONOCYTES # (AUTO) 0.5 K/uL (0.0-1.0); MONOCYTES % (AUTO) 6.8 % (1.7-9.3); NEUTROPHILS # (AUTO) 4.9 K/uL (1.8-7.7); PLATELET COUNT (AUTO) 240 K/uL (130-430); RED BLOOD CELL COUNT(AUTO) 3.56 MIL/uL (4.2-6.2); RED CELL DISTRIBUTION WIDTH 15.5 % (9.0-15.0)
[2019-03-15 07:40] LABS: ALBUMIN 2.5 g/dL (3.4-4.8); C-REACTIVE PROTEIN QUANT 0.6 mg/dL (0-0.5); CALCIUM 8.3 mg/dL (8.4-11.0); CREATININE 0.73 mg/dL (0.55-1.30); POTASSIUM 3.9 mmol/L (3.5-5.1); TOTAL BILIRUBIN 0.3 mg/dL (0.0-1.0)
--- NOTE | 2019-03-15 07:50 | NUR ---
OPENING NOTE RECEIVED PATIENT AWAKE IN BED. NO ACUTE DISTRESS. NO SOB. RESPIRATION EVEN AND UNLABORED. SKIN WARM AND DRY TO TO TOUCH. IV INTACT AND PATENT. DISCUSSED PLAN OF CARE. BED IN LOW AND LOCKED POSITION. SIDEDRAIL UPX2. CONT ON CONTACT PRECAUTION. ALL NEEDS MET. CONT TO MONITOR
[2019-03-15 08:00] VITALS: BP_SYST 152
[2019-03-15 08:37] LABS: ERYTHROCYTE SEDIMENTATION RATE 40 MM/HR (0-15)
[2019-03-15] MEDS: MULTIVITAMINS TAB 1 TABLET PO SCH (09:32)
[2019-03-15] MEDS: GABAPENTIN 300 MG CAPSULE PO SCH ×3 (09:32→21:14)
[2019-03-15] MEDS: DOXYCYCLINE HYCLATE 100 MG CAPSULE PO SCH ×2 (09:32→21:15)
[2019-03-15] MEDS: OXYBUTYNIN CHLORIDE 5 MG TABLET PO SCH ×4 (09:33→21:11)
[2019-03-15] MEDS: PANTOPRAZOLE SODIUM 40 MG TAB PO SCH (09:34)
[2019-03-15] MEDS: buPROPion HCL 150 MG TABLET.SA PO SCH ×2 (09:34→21:01)
[2019-03-15] MEDS: LISINOPRIL 10 MG TABLET (PRINIVIL) PO SCH (09:34)
[2019-03-15] MEDS: HYDROcodone/ACETAMIN 10-325 MG TAB PO PRN ×3 (09:41→21:05)
--- NOTE | 2019-03-15 09:48 | NUR ---
SEEN AND EXAMINED BY AT BEDSIDE
[2019-03-15 11:37] VITALS: BP_SYST 162
--- NOTE | 2019-03-15 11:40 | NUR ---
SEEN AND EXAMINED BY AT BEDSIDE MD ORDERED MRI LUMBAR SPINE W/OUT CONTRAST
[2019-03-15] MEDS: VANCOMYCIN HCL 1,250 MG in NS 250 ML IV SCH ×3 (12:19)
--- NOTE | 2019-03-15 12:41 | NUR ---
Dietitian Recommendations *Recommend Regular diet w/ Ensure Enlive TID. ONS will provide 1050 kcal, 60 gm protein daily. *Encourage pt to increase PO intake. Please see Nutritional Assessment YASMANY, RD
--- NOTE | 2019-03-15 14:15 | NUR ---
OFF UNIT FOR MRI VITAL SIGN STABLE. PATIENT TAKEN VIA WHEELCHAIR.
--- NOTE | 2019-03-15 14:52 | NUR ---
ON UNIT FROM MRI ALL DUE MEDS ADMINISTERED ORDERED, DESTINY WELL. JAMI NESS IN REACH. CONT TO MONITOR Addendum: 03/15/19 at 1737 by Larissa Ramsay RN PATIENT UNABLE TO LAY ON BACK FOR MRI. WILL ATTEMPT AGAIN TOMORROW
[2019-03-15 15:59] VITALS: BP_SYST 161
--- NOTE | 2019-03-15 17:33 | NUR ---
NOTE PATIENT AWAKE IN BED ON PHONE. DITROPAN ADMINISTERED ORDERED. ALL NEEDS MET. CONT TO MONITOR. CALL LIGHT IN REACH
--- NOTE | 2019-03-15 18:41 | NUR ---
CLOSING NOTE PATIENT AWAKE IN BED. STABLE. NO ACUTE DISTRESS. NO SOB. RESPIRATION EVEN AND UNLABORED. SKIN WARM AND DRY TO TOUCH. IV INTACT AND PATENT. BED IN LOW AND LOCKED POSITION. SIDERAIL UPX3. COMMODE AT BEDSIDE. ALL NEEDS MET. CALL LIGHT IN REACH. CONT TO MONITOR. WILL ENDORSE TO ONCOMING SHIFT.
[2019-03-15] MEDS ORDERED: cloNIDine HCL 0.1 MG TABLET PO PRN (23:00)
[2019-03-16] MEDS: HYDROcodone/ACETAMIN 10-325 MG TAB PO PRN ×2 (06:48→21:59)
--- NOTE | 2019-03-16 07:30 | NUR ---
Initial notes: Patient sleeping. Stable. I.V. access patent and on saline lock. Call light within reach. Safety measures in placed. Report received at bedside.
[2019-03-16 07:34] LABS: BASOPHILS # (AUTO) 0.1 K/uL (0.0-0.2); BASOPHILS % (AUTO) 1.2 % (0.0-2.0); EOSINOPHILS # (AUTO) 0.3 K/uL (0.0-0.4); EOSINOPHILS % (AUTO) 4.1 % (0.0-4.0); HEMATOCRIT 31.2 % (36-54); HEMOGLOBIN 10.3 g/dL (14.0-18.0); LYMPHOCYTES # (AUTO) 2.3 K/uL (1.0-5.5); LYMPHOCYTES % (AUTO) 30.1 % (20.5-51.5); MEAN CORPUSCULAR HEMOGLOBIN 27 pg (27-31); MEAN CORPUSCULAR HGB CONC 33 % (32-36); MEAN CORPUSCULAR VOLUME 83 fL (79.0-98.0); MONOCYTES # (AUTO) 0.6 K/uL (0.0-1.0); NEUTROPHILS # (AUTO) 4.3 K/uL (1.8-7.7); NEUTROPHILS % (AUTO) 56.6 % (40.0-70.0); PLATELET COUNT (AUTO) 258 K/uL (130-430); RED BLOOD CELL COUNT(AUTO) 3.78 MIL/uL (4.2-6.2); RED CELL DISTRIBUTION WIDTH 15.4 % (9.0-15.0); WHITE BLOOD COUNT (AUTO) 7.6 K/uL (4.8-10.8)
[2019-03-16 07:35] LABS: C-REACTIVE PROTEIN QUANT 0.4 mg/dL (0-0.5); CALCIUM 8.6 mg/dL (8.4-11.0); CREATININE 0.77 mg/dL (0.55-1.30)
[2019-03-16 08:00] VITALS: BP_SYST 135
[2019-03-16 09:25] LABS: ERYTHROCYTE SEDIMENTATION RATE 36 MM/HR (0-15)
--- NOTE | 2019-03-16 09:52 | NUR ---
PAIN: Patient complaining of back pain and cannot hold to do an MRI. Informed Dr. Trinidad with new order for Morphine 2mg IVPx1 before MRI.
[2019-03-16] MEDS ORDERED: MORPHINE 2 MG/ML INJ. SYRINGE IVP ONE (10:00)
[2019-03-16] MEDS: PANTOPRAZOLE SODIUM 40 MG TAB PO SCH (10:00)
[2019-03-16] MEDS: buPROPion HCL 150 MG TABLET.SA PO SCH ×2 (10:00→22:00)
[2019-03-16] MEDS: MULTIVITAMINS TAB 1 TABLET PO SCH (10:00)
[2019-03-16] MEDS: LISINOPRIL 10 MG TABLET (PRINIVIL) PO SCH (10:01)
[2019-03-16] MEDS: GABAPENTIN 300 MG CAPSULE PO SCH ×3 (10:01→21:59)
[2019-03-16] MEDS: DOXYCYCLINE HYCLATE 100 MG CAPSULE PO SCH ×2 (10:01→21:59)
[2019-03-16] MEDS: OXYBUTYNIN CHLORIDE 5 MG TABLET PO SCH ×4 (10:09→21:59)
[2019-03-16] MEDS: NORMAL SALINE 5 ML DISP.SYRIN IVF SCH ×2 (10:11→14:58)
[2019-03-16 11:41] VITALS: BP_SYST 161
--- NOTE | 2019-03-16 12:01 | NUR ---
MRI: Tried to do MRI lumbar. Patient unable to tolerate laying down. Repositioned and pain meds given. Not working. Will inform MD. Addendum: 03/16/19 at 1413 by Sri Orozco RN Dr. Trinidad aware MRI not done.
[2019-03-16] MEDS: VANCOMYCIN HCL 1,250 MG in NS 250 ML IV SCH ×4 (12:13→22:16)
--- NOTE | 2019-03-16 14:14 | NUR ---
rounds: Patient sleeping. No distress noted.
--- NOTE | 2019-03-16 15:04 | NUR ---
rounds: patient resting on bed. no distress noted.
[2019-03-16 15:31] VITALS: BP_SYST 160
--- NOTE | 2019-03-16 16:11 | NUR ---
IV RE-INSERTION: Complaining of pain to IV site. Restarted on L forearm. Successful after 1 attempt. Will observe for any signs of infiltration.
--- NOTE | 2019-03-16 19:00 | NUR ---
Closing notes: Patient resting on bed. Stable. Needs attended. Call light within reach. Safety measures in placed. Report given to PATITO Jiménez.
[2019-03-16 22:02] VITALS: BP_SYST 158
[2019-03-17] MEDS: NORMAL SALINE 5 ML DISP.SYRIN IVF SCH ×3 (00:49→14:00)
[2019-03-17 00:51] VITALS: BP_SYST 138
[2019-03-17 07:23] LABS: BASOPHILS # (AUTO) 0.1 K/uL (0.0-0.2); BASOPHILS % (AUTO) 0.8 % (0.0-2.0); EOSINOPHILS # (AUTO) 0.2 K/uL (0.0-0.4); EOSINOPHILS % (AUTO) 3.2 % (0.0-4.0); HEMATOCRIT 31.1 % (36-54); LYMPHOCYTES # (AUTO) 2.6 K/uL (1.0-5.5); LYMPHOCYTES % (AUTO) 34.3 % (20.5-51.5); MEAN CORPUSCULAR HEMOGLOBIN 27 pg (27-31); MEAN CORPUSCULAR HGB CONC 32 % (32-36); MEAN CORPUSCULAR VOLUME 83 fL (79.0-98.0); MONOCYTES # (AUTO) 0.6 K/uL (0.0-1.0); MONOCYTES % (AUTO) 8.4 % (1.7-9.3); NEUTROPHILS # (AUTO) 4.1 K/uL (1.8-7.7); NEUTROPHILS % (AUTO) 53.3 % (40.0-70.0); PLATELET COUNT (AUTO) 262 K/uL (130-430); RED BLOOD CELL COUNT(AUTO) 3.75 MIL/uL (4.2-6.2); RED CELL DISTRIBUTION WIDTH 15.8 % (9.0-15.0); WHITE BLOOD COUNT (AUTO) 7.7 K/uL (4.8-10.8)
[2019-03-17 07:29] LABS: CALCIUM 8.6 mg/dL (8.4-11.0); CREATININE 0.7 mg/dL (0.55-1.30); POTASSIUM 3.8 mmol/L (3.5-5.1)
--- NOTE | 2019-03-17 07:36 | NUR ---
Endorsement to Bassam Napier, registered nurse for day team. Tino Cornejo RN
--- NOTE | 2019-03-17 08:20 | NUR ---
OPENING NOTE PATIENT RESTING IN BED, A/OX4, DENIES PAIN, ASSESSMENT COMPLETE, EDUCATED ROUTER OPERATOR PIN LIGHT SYSTEM AND PLAN OF CARE, HE VERBALIZED UNDERSTANDING, BED IN LOWEST POSITION, TWO SIDE RAILS UP, CALL LIGHT WITHIN REACH,FALL, ASPIRATION AND ISOLATION PRECAUTIONS IN PLACE.
[2019-03-17 08:27] LABS: C-REACTIVE PROTEIN QUANT 0.3 mg/dL (0-0.5)
[2019-03-17 08:39] LABS: ERYTHROCYTE SEDIMENTATION RATE 31 MM/HR (0-15)
[2019-03-17] MEDS: buPROPion HCL 150 MG TABLET.SA PO SCH (09:47)
[2019-03-17] MEDS: DOXYCYCLINE HYCLATE 100 MG CAPSULE PO SCH (09:47)
[2019-03-17] MEDS: OXYBUTYNIN CHLORIDE 5 MG TABLET PO SCH ×3 (09:48→17:19)
[2019-03-17] MEDS: MULTIVITAMINS TAB 1 TABLET PO SCH (09:48)
[2019-03-17] MEDS: LISINOPRIL 10 MG TABLET (PRINIVIL) PO SCH (09:48)
[2019-03-17] MEDS: PANTOPRAZOLE SODIUM 40 MG TAB PO SCH (09:48)
[2019-03-17] MEDS: GABAPENTIN 300 MG CAPSULE PO SCH ×2 (09:48→14:22)
[2019-03-17 09:50] VITALS: BP_SYST 158
--- NOTE | 2019-03-17 09:50 | NUR ---
MEDICATION PATIENT RESTING IN BED, AWAKE, DENIES PAIN, EDUCATED ON MEDICATIONS USES AND POTENTIAL SIDE EFFECTS, HE VERBALIZED UNDERSTANDING AND TOLERATED WELL, IV LINE IS PATENT AND INFUSING WELL, CONTINUING TO MONITOR, BED IN LOWEST POSITION, THREE SIDE RAILS UP, CALL LIGHT WITHIN REACH, FALL AND ASPIRATION PRECAUTIONS.
[2019-03-17 10:15] VITALS: BP_SYST 158
[2019-03-17 11:04] LABS: PROTHROMBIN TIME 10.2 SECS (9.5-12.5)
--- NOTE | 2019-03-17 12:09 | NUR ---
PICC LINE NURSE AT BEDSIDE AT THIS TIME.
[2019-03-17] MEDS: VANCOMYCIN HCL 1,250 MG in NS 250 ML IV SCH (12:46)
--- NOTE | 2019-03-17 12:55 | NUR ---
RN ROUNDS/ANTIBIOTIC PATIENT RESTING IN BED, AWAKE, PICC LINE INSERTION COMPLETE, LINE IS PATENT, EDUCATED PATIENT ON IV ANTIBIOTIC USES AND POTENTIAL SIDE EFFECTS, HE VERBALIZED UNDERSTANDING, NO OTHER NEEDS AT THIS TIME, BED IN LOWEST POSITION, TWO SIDE RAILS UP, CALL LIGHT WITHIN REACH, FALL, ASPIRATION, ISOLATION PRECAUTIONS IN PLACE.
--- NOTE | 2019-03-17 14:25 | NUR ---
RN ROUNDS PATIENT RESTING IN BED, AWAKE, EDUCATED ON MEDICATIONS USES AND POTENTIAL SIDE EFFECTS, HE VERBALIZED UNDERSTANDING AND TOLERATED WELL, PICC LINE IS INTACT AND INFUSING WELL, CONTINUING TO MONITOR, BED IN LOWEST POSITION, TWO SIDE RAILS UP, CALL LIGHT WITHIN REACH, FALL, ASPIRATION AND ISOLATION PRECAUTIONS IN PLACE.
--- NOTE | 2019-03-17 14:39 | NUR ---
D/C PLANNING RECEIVED CALL FROM SPOKE WITH [facility] AT [phone] ADVISED HE WILL ACCEPT THE PATIENT. UPON DISCHARGE. CM NEEDS TO CONTACT MICHELLE TEJADA WITH D/C DATE FOR START OF CARE AND HH THAT PATIENT WILL BE USING.
--- NOTE | 2019-03-17 14:58 | NUR ---
Discharge Planning: [facility] ([phone] p [phone]), [facility] ( [phone] p [phone]) DCP to follow up. Addendum: 03/17/19 at 1509 by Ilda Arceo DP DCP followed up with [facility] ([phone] p [phone]) pt was DC per service was up and no nurse at this current time. DCP faxed to [facility] p [phone]) DCP to follow up, [facility] ( [phone] p [phone]) accepted pt. Addendum: 03/17/19 at 1641 by Ilda Arceo DP [facility] (f [phone] p [phone]) accepted pt, [facility] (f [phone] p [phone]) per Fatuma order is need showing Drug, Doseage, Duration. Clarification on Picc line. DCP made nurse aware and doctor will be notified, order needs to be faxed to [facility] (f [phone] p [phone]).
[2019-03-17 15:30] VITALS: BP_SYST 176
--- NOTE | 2019-03-17 16:38 | NUR ---
RN ROUNDS PATIENT RESTING IN BED, AWAKE, HIS IS AT BEDSIDE, INFORMED THAT CASE MANAGEMENT IS STILL WORKING ON SETTING UP HOME HEALTH, PATIENT AND HIS VERBALIZED UNDERSTANDING, NO OTHER NEEDS AT THIS TIME, BED IN LOWEST POSITION, TWO SIDE RAILS UP, CALL LIGHT WITHIN REACH, FALL, ASPIRATION AND ISOLATION PRECAUTIONS IN PLACE.
--- NOTE | 2019-03-17 16:39 | NUR ---
PAGED DR. KNIGHT FOR DISCHARGE ORDERS, HOME HEALTH ARRANGED BY SURGEON CHIEF.
[2019-03-17 17:15] VITALS: BP_SYST 167
--- NOTE | 2019-03-17 17:22 | NUR ---
RN ROUNDS/MEDICATION PATIENT RESTING IN BED, AWAKE, AT BEDSIDE, ADMINISTERED SCHEDULED MEDICATION AND PRN BLOOD PRESSURE MEDICATION DUE TO ELEVATED BP, PATIENT WAS EDUCATED ON MEDICATIONS USES AND POTENTIAL SIDE EFFECTS, HE VERBALIZED UNDERSTANDING AND TOLERATED WELL, CONTINUING TO MONITOR, WILL REASSESS BLOOD PRESSURE, NO OTHER NEEDS AT THIS TIME, BED IN LOWEST POSITION, TWO SIDE RAILS UP, CALL LIGHT WITHIN REACH, FALL, ASPIRATION AND ISOLATION PRECAUTIONS IN PLACE.
[2019-03-17 18:15] VITALS: BP_SYST 166
--- NOTE | 2019-03-17 18:16 | NUR ---
OLY KNIGHT REGARDING ELEVATED BLOOD PRESSURE POST MEDICATION ADMINISTRATION. Addendum: 03/17/19 at 1820 by Bassam Quintana RN PATIENT CAN STILL DISCHARGE HOME, NEEDS TO FOLLOW UP WITH HIS PCP JULITO.
--- NOTE | 2019-03-17 19:04 | NUR ---
D/C Patient Patient given medication reconciliation form and D/C instructions. Exit Care provided. Patient verbalized understanding. MD discussed with patient the results and treatment provided. Patient in stable condition, ID band removed. IV catheter removed, intact and dressing applied, no active bleeding. Rx of HOME MEDICATIONS, FOLLOW UP WITH HOME HEALTH given. Patient educated on pain management. All belongings sent with patient. Addendum: 03/17/19 at 1905 by Bassam Quintana RN PICC LINE IN PLACE, INTACT. DSG CDI
[2019-03-18] MEDS ORDERED: VANCOMYCIN HCL 1,000 MG in NS 250 ML IV SCH ×2
== END 2019-03-17 19:00 | disposition home health service (06) | DRG 871 ==
LOC: SED 19:18 → SMU 23:00
PROVIDERS: ADMIT Preventive Medicine Preventive Medicine/Occupational Environmental Medicine; ATTEND Preventive Medicine Preventive Medicine/Occupational Environmental Medicine
PROC: 02HV33Z Insertion of Infusion Device into Superior Vena Cava, Percutaneous Approach (ICD-10-PCS; principal; 2019-03-13)
PROC: B548ZZA Ultrasonography of Superior Vena Cava, Guidance (ICD-10-PCS; 2019-03-13)
DX: A41.02 Sepsis due to Methicillin resistant Staphylococcus aureus (principal); J18.9 Pneumonia, unspecified organism; J44.0 Chronic obstructive pulmonary disease with (acute) lower respiratory infection; E87.1 Hypo-osmolality and hyponatremia; G62.9 Polyneuropathy, unspecified; I10 Essential (primary) hypertension; K21.9 Gastro-esophageal reflux disease without esophagitis; D64.9 Anemia, unspecified; G89.4 Chronic pain syndrome; G40.909 Epilepsy, unspecified, not intractable, without status epilepticus; F10.10 Alcohol abuse, uncomplicated; M54.5 Low back pain; Z85.46 Personal history of malignant neoplasm of prostate; Z79.899 Other long term (current) drug therapy
CPT/HCPCS: 36415; 71045; 80048; 80053; 80202-TC; 83605; 85025; 85610-TC; 85651-TC; 85730-TC; 86140; 87040-TC; 87081; 96365; 96375; 99285; C1751; J1885; J2270; J2405; J3370; J7030; J7050; J7613

== ENCOUNTER 2020-02-07 06:54 | Emergency (ER) | payer OTHER, MEDICAID ==
[~2020-02-07] VITALS: Ht 180.3 cm; Wt 68.0 kg
[2020-02-07 07:02] VITALS: BP_SYST 146
--- NOTE | 2020-02-07 07:02 | NUR ---
Patient to ER bed 04 to gown for evaluation. Side rails up. Report given to RN
--- NOTE | 2020-02-07 07:20 | NUR ---
PT CAME FOR SPONTANEOUS LEFT EYE SWELLING, PT STATES HIS BEEN HAVING FACIAL SWELLING FOR THE LAST 3 DAYS. PT DENIES ANY SOB, CHEST PAIN, AND HEADACHE. VSS
[2020-02-07] MEDS ORDERED: EPINEPHrine 1 MG/ML AMP IM ONE (07:45)
[2020-02-07] MEDS ORDERED: FAMOTIDINE 20 MG TABLET PO ONE (07:45)
[2020-02-07] MEDS ORDERED: predniSONE 20 MG TABLET PO ONE (07:45)
--- NOTE | 2020-02-07 07:45 | NUR ---
MD HUMPHRIES AT BEDSIDE ASSESSING PT.
--- NOTE | 2020-02-07 09:01 | NUR ---
PT IS AAOX4, PT HAS BEEN D/C AND VERBAILZED UNDERSTANDING OF D/C PAPER WORK AND PRESCIPTION. PT VSS, AMBULATORY WITH STEADY GAIT, NAD VSS.
[2020-02-07 09:03] VITALS: BP_SYST 117
== END 2020-02-07 09:01 | disposition home or self-care (01) ==
LOC: SED 06:54
DX: T78.3XXA Angioneurotic edema, initial encounter (principal); I10 Essential (primary) hypertension; K21.9 Gastro-esophageal reflux disease without esophagitis; F10.239 Alcohol dependence with withdrawal, unspecified; Z79.899 Other long term (current) drug therapy; X58.XXXA Exposure to other specified factors, initial encounter
CPT/HCPCS: 96372; 99283; J0171; J7512

== ENCOUNTER 2020-08-10 10:27 | Emergency (ER) | payer OTHER, MEDICAID ==
[~2020-08-10] VITALS: Ht 180.3 cm; Wt 74.8 kg
[~2020-08-10 10:27] MED LIST changes: -CIPR-211 PO; +CIPR500T5 PO; +HYDR-3927 PO; -HYDR-4100 PO; +LISI10TA29 PO; -LISI10TA5 PO
--- NOTE | 2020-08-10 10:35 | NUR ---
Patient to ER bed 8 to gown for evaluation. Side rails up.
[2020-08-10 10:37] VITALS: BP_SYST 114
--- NOTE | 2020-08-10 10:40 | NUR ---
ER at bedside examining patient.
--- NOTE | 2020-08-10 10:42 | NUR ---
pt arrives from home w/ c/o right ear hearing loss since yesterday am. Pt denies any trauma or pain to the ear.
--- NOTE | 2020-08-10 11:00 | NUR ---
left ear wax removed by Dr. Randall
[2020-08-10 11:09] VITALS: BP_SYST 114
--- NOTE | 2020-08-10 11:09 | NUR ---
Patient given written and verbal discharge instructions and verbalizes understanding. ER MD discussed with patient the results and treatment provided. Patient in stable condition. ID arm band removed. Patient educated on pain management and to follow up with PMD. Pain Scale 0/10. Opportunity for questions provided and answered. Medication side effect fact sheet provided.
== END 2020-08-10 11:09 | disposition home or self-care (01) ==
LOC: SED 10:27
DX: H61.21 Impacted cerumen, right ear (principal); J44.9 Chronic obstructive pulmonary disease, unspecified; I10 Essential (primary) hypertension; K21.9 Gastro-esophageal reflux disease without esophagitis; F10.10 Alcohol abuse, uncomplicated; Z85.3 Personal history of malignant neoplasm of breast; Z79.899 Other long term (current) drug therapy
CPT/HCPCS: 99283

== ENCOUNTER 2021-05-25 11:38 | Emergency (ER) | payer OTHER, MEDICAID, SELFPAY ==
[~2021-05-25] VITALS: Ht 170.2 cm; Wt 86.2 kg
[~2021-05-25 11:38] MED LIST changes: -ALBU8.5H8 INH; -CIPR500T5 PO; -HYDR-3927 PO; -LISI10TA29 PO; -MULT PO; -PRO40 PO; -WELSR150 PO
[2021-05-25 11:42] VITALS: BP_SYST 155
--- NOTE | 2021-05-25 11:49 | NUR ---
patient [employer] from home alert disoriented, gen weakness, Dr Lorenzana notified patient placed in room 6, vital stable will continue to monitor.
[2021-05-25 12:41] LABS: BASOPHILS # (AUTO) 0.1 K/uL (0.0-0.2); BASOPHILS % (AUTO) 1.3 % (0.0-2.0); EOSINOPHILS % (AUTO) 0.6 % (0.0-4.0); HEMATOCRIT 42.2 % (36-54); HEMOGLOBIN 13.8 g/dL (14.0-18.0); LYMPHOCYTES # (AUTO) 0.2 K/uL (1.0-5.5); LYMPHOCYTES % (AUTO) 3.1 % (20.5-51.5); MEAN CORPUSCULAR HEMOGLOBIN 26 pg (27-31); MEAN CORPUSCULAR HGB CONC 33 % (32-36); MEAN CORPUSCULAR VOLUME 79 fL (79.0-98.0); MONOCYTES # (AUTO) 0.5 K/uL (0.0-1.0); MONOCYTES % (AUTO) 7.6 % (1.7-9.3); NEUTROPHILS # (AUTO) 6.2 K/uL (1.8-7.7); NEUTROPHILS % (AUTO) 87.4 % (40.0-70.0); PLATELET COUNT (AUTO) 161 K/uL (130-430); RED BLOOD CELL COUNT(AUTO) 5.32 MIL/uL (4.2-6.2); RED CELL DISTRIBUTION WIDTH 15.3 % (9.0-15.0); WHITE BLOOD COUNT (AUTO) 7.1 K/uL (4.8-10.8)
[2021-05-25 12:58] LABS: PROTHROMBIN TIME 10.9 SECS (9.5-12.5)
[2021-05-25 13:12] LABS: CALCIUM 8.9 mg/dL (8.4-11.0); CREATININE 1.02 mg/dL (0.55-1.30); POTASSIUM 3.3 mmol/L (3.5-5.1)
[2021-05-25] MEDS ORDERED: ONDANSETRON 4 MG ODT TAB PO ONE (13:15)
[2021-05-25 13:20] LABS: TOTAL BILIRUBIN 0.2 mg/dL (0.0-1.0)
[2021-05-25 13:21] LABS: ALBUMIN 3.6 g/dL (3.4-4.8)
[2021-05-25] MEDS ORDERED: NACL 0.9% 1,000 ML IV ONE (13:30)
[2021-05-25] MEDS ORDERED: ONDANSETRON HCL 4 MG/2 ML VIAL IVP ONE (13:30)
--- NOTE | 2021-05-25 13:57 | NUR ---
patient mental status improved Dr Lorenzana talked to family will d/c home when daughter tow picker patient.
[2021-05-25] MEDS ORDERED: ONDA-8 TL (14:14)
[2021-05-25] MEDS ORDERED: PSEU30TA36 PO (14:14)
[2021-05-25 15:16] VITALS: BP_SYST 150
--- NOTE | 2021-05-25 15:18 | NUR ---
Patient given written and verbal discharge instructions and verbalizes understanding. ER MD discussed with patient the results and treatment provided. Patient in stable condition. ID arm band removed. IV catheter removed intact and dressing applied, no active bleeding. Rx of given. Patient educated on pain management and to follow up with PMD. Pain Scale . Opportunity for questions provided and answered. Medication side effect fact sheet provided.
== END 2021-05-25 15:16 | disposition home or self-care (01) ==
LOC: SED 11:38
DX: J40 Bronchitis, not specified as acute or chronic (principal); K52.9 Noninfective gastroenteritis and colitis, unspecified; J44.9 Chronic obstructive pulmonary disease, unspecified; K21.9 Gastro-esophageal reflux disease without esophagitis; I10 Essential (primary) hypertension; Z20.822 Contact with and (suspected) exposure to COVID-19; R93.0 Abnormal findings on diagnostic imaging of skull and head, not elsewhere classified
CPT/HCPCS: 36415; 70450; 71045; 76376; 80053; 83605; 83880; 85025; 85610; 85730; 87426; 87804 ×2; 93005; 96361; 96374; 99285; J2405; J7030; Q0162

== ENCOUNTER 2022-08-16 13:04 | Inpatient (IN) | payer OTHER, MEDICAID ==
[~2022-08-16] VITALS: Ht 180.3 cm; Wt 79.8 kg
[~2022-08-16 13:04] MED LIST changes: +ONDA-8 TL; +PSEU30TA36 PO
[2022-08-16 13:38] VITALS: BP_SYST 164
[2022-08-16] MEDS ORDERED: ONDANSETRON 4 MG ODT TAB PO ONE (14:00)
[2022-08-16 14:33] LABS: BASOPHILS # (AUTO) 0.1 K/uL (0.0-0.2); BASOPHILS % (AUTO) 0.5 % (0.0-2.0); EOSINOPHILS # (AUTO) 0.1 K/uL (0.0-0.4); EOSINOPHILS % (AUTO) 0.3 % (0.0-4.0); HEMATOCRIT 50.4 % (36-54); MEAN CORPUSCULAR HEMOGLOBIN 26 pg (27-31); MEAN CORPUSCULAR HGB CONC 32 % (32-36); MEAN CORPUSCULAR VOLUME 81 fL (79.0-98.0); MONOCYTES # (AUTO) 0.8 K/uL (0.0-1.0); MONOCYTES % (AUTO) 3.8 % (1.7-9.3); NEUTROPHILS # (AUTO) 18.3 K/uL (1.8-7.7); NEUTROPHILS % (AUTO) 90.4 % (40.0-70.0); PLATELET COUNT (AUTO) 226 K/uL (130-430); RED BLOOD CELL COUNT(AUTO) 6.21 MIL/uL (4.2-6.2); RED CELL DISTRIBUTION WIDTH 15.3 % (9.0-15.0); WHITE BLOOD COUNT (AUTO) 20.3 K/uL (4.8-10.8)
[2022-08-16 14:44] LABS: ANION GAP 13 (5-15); CHLORIDE 99 mmol/L (98-107); CREATININE 1.25 mg/dL (0.55-1.30); GFR AFRICAN AMERICAN 75 mL/min (>90); GLUCOSE 197 mg/dL (70-99); UREA NITROGEN, BLOOD 19 mg/dL (8-21)
[2022-08-16 14:48] LABS: ALANINE AMINOTRANSFERASE 2 U/L (12-78); ALBUMIN 3.8 g/dL (3.4-4.8); AMYLASE 71 U/L (0-100); ASPARTATE AMINOTRANSFERASE 18 U/L (10-37); C-REACTIVE PROTEIN QUANT 1.5 mg/dL (0-0.5); LACTATE DEHYDROGENASE 250 U/L (85-227); LIPASE 54 U/L (73-393); TOTAL BILIRUBIN 0.6 mg/dL (0.0-1.0)
[2022-08-16 14:50] LABS: ACETONE, SERUM NEGATIVE (NEGATIVE)
[2022-08-16] MEDS ORDERED: METOCLOPRAMIDE HCL 10 MG/2 ML VIAL IVP ONE (15:15)
[2022-08-16] MEDS ORDERED: MORPHINE 2 MG/ML INJ. SYRINGE IVP ONE (15:15)
[2022-08-16] MEDS ORDERED: PIPERACILLIN/TAZO 4.5GM/DEX-IS 100 ML IV SCH (15:15)
[2022-08-16] MEDS ORDERED: NACL 0.9% 1,000 ML IV ONE ×3 (15:15→19:15)
[2022-08-16] MEDS ORDERED: PIPERACILLIN/TAZO 4.5GM/DEX-IS 100 ML IV ONE ×2 (15:20→16:40)
[2022-08-16] MEDS ORDERED: VANCOMYCIN HCL 1,000 MG in NS 250 ML IV ONE (15:30)
[2022-08-16] MEDS ORDERED: cefTRIAXone 1 GM in D5W 50 ML IV ONE (19:15)
[2022-08-16] MEDS ORDERED: cefTRIAXone 1 GM VIAL ONE ×2 (20:31→21:53)
[2022-08-16] MEDS ORDERED: VANCOMYCIN HCL 1000 MG/VIAL IV ONE (20:36)
[2022-08-16 21:08] LABS: BILIRUBIN,URINE NEGATIVE (NEGATIVE); BLOOD, URINE 2+ (NEGATIVE); CLARITY/URINE CLEAR (CLEAR); COLOR,URINE YELLOW (YELLOW); GLUCOSE,URINE NEGATIVE (NEGATIVE); KETONES,URINE TRACE (NEGATIVE); LEUKOCYTE ESTERASE ,URINE NEGATIVE (NEGATIVE); NITRITE, URINE NEGATIVE (NEGATIVE); PROTEIN URINE 3+ (NEGATIVE); UROBILINOGEN,URINE 0.2 (0.2-1.0)
[2022-08-16 21:16] LABS: BACTERIA,URINE FEW /HPF (None Seen); MUCUS,URINE None Seen /LPF (None Seen); RBC,URINE 0-3 /HPF (0-3); WBC,URINE NONE SEEN /HPF (0-3)
[2022-08-16 21:29] VITALS: BP_SYST 181
[2022-08-16 22:35] VITALS: BP_SYST 155
[2022-08-16] MEDS ORDERED: MELATONIN 5 MG TABLET PO PRN (23:15)
[2022-08-16] MEDS ORDERED: INSULIN REGULAR, HUMAN 100 UNITS/ML, 3 ML VIAL (humuLIN R) SUBCUT PRN (23:45)
[2022-08-17] VITALS (8 sets, daily range): BP systolic 122–197
[2022-08-17] MEDS ORDERED: MELATONIN 5 MG TABLET PO ONE (01:16)
[2022-08-17] MEDS ORDERED: LORazepam 2 MG/ML VIAL IVP ONE (03:30)
[2022-08-17] MEDS: ONDANSETRON HCL 4 MG/2 ML VIAL IVP PRN ×3 (03:38→21:10)
[2022-08-17] MEDS ORDERED: INSULIN REGULAR, HUMAN 100 UNITS/ML, 3 ML VIAL SUBCUT SCH (07:00)
[2022-08-17] MEDS: hydrALAZINE HCL 10 MG TABLET PO PRN ×2 (08:12→14:40)
[2022-08-17] MEDS: NACL 0.9% 1,000 ML IV SCH ×3 (10:05→23:21)
[2022-08-17] MEDS ORDERED: OXYBUTYNIN CHLORIDE 5 MG XL TAB PO SCH (10:15)
[2022-08-17] MEDS ORDERED: GABAPENTIN 300 MG CAPSULE PO ONE (10:30)
[2022-08-17] MEDS: PIPERACILLIN/TAZO 3.375/DEX-IS 50 ML IV SCH ×3 (11:35→23:30)
[2022-08-17] MEDS: VANCOMYCIN HCL 750 MG in NS 250 ML IV SCH (11:37)
[2022-08-17] MEDS: oxyBUTYnin chloride 5 MG TABLET PO SCH ×2 (15:43→21:10)
[2022-08-18] VITALS (8 sets, daily range): BP systolic 139–181
[2022-08-18] MEDS: VANCOMYCIN HCL 750 MG in NS 250 ML IV SCH ×2 (00:57→12:12)
[2022-08-18] MEDS: PIPERACILLIN/TAZO 3.375/DEX-IS 50 ML IV SCH ×3 (05:51→17:14)
[2022-08-18] MEDS: ONDANSETRON HCL 4 MG/2 ML VIAL IVP PRN (06:19)
[2022-08-18] MEDS: hydrALAZINE HCL 10 MG TABLET PO PRN (08:08)
[2022-08-18] MEDS: oxyBUTYnin chloride 5 MG TABLET PO SCH ×3 (08:08→21:58)
[2022-08-18] MEDS: GABAPENTIN 300 MG CAPSULE PO SCH (08:08)
[2022-08-18] MEDS ORDERED: lisinopriL 20 MG TABLET PO ONE (09:45)
[2022-08-18 10:35] LABS: BASOPHILS # (AUTO) 0.1 K/uL (0.0-0.2); BASOPHILS % (AUTO) 0.8 % (0.0-2.0); EOSINOPHILS % (AUTO) 0.1 % (0.0-4.0); HEMATOCRIT 43.6 % (36-54); HEMOGLOBIN 13.9 g/dL (14.0-18.0); LYMPHOCYTES # (AUTO) 2.1 K/uL (1.0-5.5); LYMPHOCYTES % (AUTO) 12.3 % (20.5-51.5); MEAN CORPUSCULAR HEMOGLOBIN 26 pg (27-31); MEAN CORPUSCULAR HGB CONC 32 % (32-36); MEAN CORPUSCULAR VOLUME 82 fL (79.0-98.0); MONOCYTES # (AUTO) 1.1 K/uL (0.0-1.0); MONOCYTES % (AUTO) 6.6 % (1.7-9.3); NEUTROPHILS # (AUTO) 13.4 K/uL (1.8-7.7); NEUTROPHILS % (AUTO) 80.2 % (40.0-70.0); PLATELET COUNT (AUTO) 164 K/uL (130-430); RED BLOOD CELL COUNT(AUTO) 5.31 MIL/uL (4.2-6.2); RED CELL DISTRIBUTION WIDTH 15.4 % (9.0-15.0); WHITE BLOOD COUNT (AUTO) 16.8 K/uL (4.8-10.8)
[2022-08-18 10:54] LABS: CALCIUM 7.8 mg/dL (8.4-11.0); TOTAL BILIRUBIN 0.6 mg/dL (0.0-1.0)
[2022-08-18] MEDS ORDERED: KCL 40 mEq in 100 mL (PREMIX) 100 ML IV ONE (11:45)
[2022-08-18] MEDS: POTASSIUM CHLORIDE 20 mEq in 100 mL (PREMIX) 100 ML x 2 doses IV SCH ×2 (13:18→15:06)
[2022-08-18] MEDS ORDERED: OMEPRAZOLE Non-Formulary 20 MG CAPSULE.DR PO SCH (13:45)
[2022-08-18] MEDS ORDERED: PANTOPRAZOLE SODIUM 40 MG TAB PO ONE (13:45)
[2022-08-18] MEDS: NACL 0.9% 1,000 ML IV SCH (15:14)
[2022-08-19] VITALS: BP_SYST 146
[2022-08-19] MEDS: VANCOMYCIN HCL 750 MG in NS 250 ML IV SCH ×2 (00:31→12:30)
[2022-08-19] MEDS: PIPERACILLIN/TAZO 3.375/DEX-IS 50 ML IV SCH ×3 (00:33→12:00)
[2022-08-19] MEDS: NACL 0.9% 1,000 ML IV SCH ×2 (02:00→12:00)
[2022-08-19 07:47] LABS: BASOPHILS # (AUTO) 0.1 K/uL (0.0-0.2); BASOPHILS % (AUTO) 0.7 % (0.0-2.0); EOSINOPHILS # (AUTO) 0.1 K/uL (0.0-0.4); EOSINOPHILS % (AUTO) 0.5 % (0.0-4.0); HEMOGLOBIN 12.1 g/dL (14.0-18.0); LYMPHOCYTES % (AUTO) 24.3 % (20.5-51.5); MEAN CORPUSCULAR HEMOGLOBIN 26 pg (27-31); MEAN CORPUSCULAR HGB CONC 32 % (32-36); MEAN CORPUSCULAR VOLUME 82 fL (79.0-98.0); MONOCYTES % (AUTO) 8.1 % (1.7-9.3); NEUTROPHILS # (AUTO) 8.1 K/uL (1.8-7.7); NEUTROPHILS % (AUTO) 66.4 % (40.0-70.0); PLATELET COUNT (AUTO) 129 K/uL (130-430); RED BLOOD CELL COUNT(AUTO) 4.63 MIL/uL (4.2-6.2); RED CELL DISTRIBUTION WIDTH 15.4 % (9.0-15.0); WHITE BLOOD COUNT (AUTO) 12.3 K/uL (4.8-10.8)
[2022-08-19 08:00] VITALS: BP_SYST 176
[2022-08-19 08:04] LABS: ALBUMIN 2.6 g/dL (3.4-4.8); CALCIUM 8.2 mg/dL (8.4-11.0); CREATININE 0.88 mg/dL (0.55-1.30); TOTAL BILIRUBIN 0.3 mg/dL (0.0-1.0)
[2022-08-19] MEDS ORDERED: PRO40 PO (08:40)
[2022-08-19] MEDS ORDERED: LISI20TA30 PO (08:40)
[2022-08-19] MEDS ORDERED: LEVO-62 PO (08:40)
[2022-08-19] MEDS ORDERED: METR-154 PO (08:40)
[2022-08-19] MEDS ORDERED: PANTOPRAZOLE SODIUM 40 MG TAB PO ONE (08:45)
[2022-08-19] MEDS ORDERED: lisinopriL 20 MG TABLET PO SCH (09:00)
[2022-08-19] MEDS ORDERED: PANTOPRAZOLE SODIUM 40 MG TAB PO SCH (09:00)
[2022-08-19] MEDS: oxyBUTYnin chloride 5 MG TABLET PO SCH (09:17)
[2022-08-19] MEDS: GABAPENTIN 300 MG CAPSULE PO SCH (09:18)
[2022-08-19 11:29] VITALS: BP_SYST 166
[2022-08-19 12:03] VITALS: BP_SYST 166
== END 2022-08-19 14:30 | disposition home or self-care (01) | DRG 872 ==
LOC: SED 13:04 → STU 19:01
PROVIDERS: ADMIT Family Medicine; ATTEND Family Medicine
DX: A41.9 Sepsis, unspecified organism (principal); N39.0 Urinary tract infection, site not specified; K21.00 Gastro-esophageal reflux disease with esophagitis, without bleeding; K44.9 Diaphragmatic hernia without obstruction or gangrene; J44.9 Chronic obstructive pulmonary disease, unspecified; I10 Essential (primary) hypertension; G62.9 Polyneuropathy, unspecified; F10.10 Alcohol abuse, uncomplicated; Z20.822 Contact with and (suspected) exposure to COVID-19; R73.9 Hyperglycemia, unspecified; D72.829 Elevated white blood cell count, unspecified; Y90.9 Presence of alcohol in blood, level not specified; Z79.899 Other long term (current) drug therapy; Z85.46 Personal history of malignant neoplasm of prostate
CPT/HCPCS: 36415; 71045; 76376; 80053; 81000; 82009; 82150; 83605; 83615; 83690; 85025; 86140; 87040; 96365; 96367; 96375; 99285; G0378; J0696; J2060; J2270; J2405; J2543; J2765; J3370; J3480; J7030; J7050; J7060; Q0162

== ENCOUNTER 2023-09-02 21:42 | Emergency (ER) | payer OTHER, MEDICAID ==
[~2023-09-02] VITALS: Ht 177.8 cm; Wt 77.1 kg
[~2023-09-02 21:42] MED LIST changes: +LEVO-62 PO; +LISI20TA30 PO; +METR-154 PO; +PRO40 PO
[2023-09-02 21:55] VITALS: BP_SYST 132; PULSE 76; RESP 20; TEMP 99.6; O2SAT 94
[2023-09-02] MEDS: levETIRAcetam 500 MG IV PREMIX 100 ML IV ONE (22:35)
[2023-09-02 23:41] LABS: BASOPHILS # (AUTO) 0.1 K/uL (0.0-0.2); BASOPHILS % (AUTO) 0.9 % (0.0-2.0); EOSINOPHILS # (AUTO) 0.1 K/uL (0.0-0.4); EOSINOPHILS % (AUTO) 0.6 % (0.0-4.0); HEMATOCRIT 33.8 % (36-54); LYMPHOCYTES # (AUTO) 3.4 K/uL (1.0-5.5); MEAN CORPUSCULAR HEMOGLOBIN 26 pg (27-31); MEAN CORPUSCULAR HGB CONC 33 % (32-36); MEAN CORPUSCULAR VOLUME 80 fL (79.0-98.0); MONOCYTES % (AUTO) 6.9 % (1.7-9.3); NEUTROPHILS # (AUTO) 10.2 K/uL (1.8-7.7); NEUTROPHILS % (AUTO) 68.6 % (40.0-70.0); PLATELET COUNT (AUTO) 277 K/uL (130-430); RED BLOOD CELL COUNT(AUTO) 4.21 MIL/uL (4.2-6.2); RED CELL DISTRIBUTION WIDTH 16.5 % (9.0-15.0); WHITE BLOOD COUNT (AUTO) 14.9 K/uL (4.8-10.8)
[2023-09-03] MEDS ORDERED: LEVE500T9 PO (00:04)
[2023-09-03 00:15] LABS: ALBUMIN 2.9 g/dL (3.4-4.8); BILIRUBIN,DIRECT 0.1 mg/dL (0.0-0.3); CALCIUM 8.8 mg/dL (8.4-11.0); CREATININE 1.1 mg/dL (0.55-1.30); POTASSIUM 4.3 mmol/L (3.5-5.1); TOTAL BILIRUBIN 0.1 mg/dL (0.0-1.0); TOTAL PROTEIN, SERUM 7.2 g/dL (6.4-8.3)
[2023-09-03 00:58] LABS: BLOOD GAS HCO3 23.5 mmol/L (21.0-27.0); BLOOD GAS PCO2 38.6 mmHg (32.0-45.0); BLOOD GAS PH 7.402 (7.350-7.450); BLOOD GAS PO2 68.6 mmHg (75.0-100.0)
[2023-09-03 00:59] LABS: ABG O2 SAT% ESTIMATE 93.9 % (94.0-100.0); ALLEN'S TEST POSITIVE (P)
[2023-09-03] MEDS: cefTRIAXone 1 GM IVPB PREMIX 50 ML IV ONE (01:05)
[2023-09-03] MEDS ORDERED: AZITHROMYCIN 500 MG/VIAL (ZITHROMAX) IV ONE (01:08)
[2023-09-03] MEDS: AZITHROMYCIN 500 MG in NS 250 ML IV ONE (02:21)
[2023-09-03] MEDS ORDERED: ALBMDI INH (03:02)
[2023-09-03] MEDS ORDERED: CLAR-61 PO (03:02)
[2023-09-03 03:05] VITALS: BP_SYST 132; PULSE 76; RESP 20; TEMP 99.6; O2SAT 94
== END 2023-09-03 03:05 | disposition home or self-care (01) ==
LOC: SED 21:42
DX: J18.9 Pneumonia, unspecified organism (principal); R56.9 Unspecified convulsions; R55 Syncope and collapse; R05.9 Cough, unspecified; I10 Essential (primary) hypertension; K21.9 Gastro-esophageal reflux disease without esophagitis; J44.9 Chronic obstructive pulmonary disease, unspecified; Z85.46 Personal history of malignant neoplasm of prostate; Z98.890 Other specified postprocedural states; Z79.899 Other long term (current) drug therapy; Z79.2 Long term (current) use of antibiotics
CPT/HCPCS: 99285; 96365; 70450; 80076; 80048; 85025; 87040; 36415; 82803 ×2; 83605; 71045; 96367; 36600; 96368; J1953; J0456; J0696

== ENCOUNTER 2023-11-24 12:13 | Inpatient (IN) | payer OTHER, MEDICAID ==
[~2023-11-24] VITALS: Ht 177.8 cm; Wt 79.8 kg
[2023-11-24] MEDS: OXYBUTYNIN CHLORIDE 5 MG XL TAB PO SCH (01:00)
[~2023-11-24 12:13] MED LIST changes: +ALBMDI INH; +CLAR-61 PO; -PRO40 PO
[2023-11-24 12:15] VITALS: BP_SYST 159; PULSE 87; RESP 18; TEMP 96.5; O2SAT 96
[2023-11-24] MEDS: NS 1000 ML IV.SOLN IV ONE (13:40)
[2023-11-24 13:45] LABS: INR 1.1 (0.80-1.20); PROTHROMBIN TIME 11.4 SECS (9.5-12.5)
[2023-11-24 13:47] LABS: ALANINE AMINOTRANSFERASE 14 U/L (12-78); ALBUMIN 3.8 g/dL (3.4-4.8); ANION GAP 10 (5-15); ASPARTATE AMINOTRANSFERASE 14 U/L (10-37); CALCIUM 9.9 mg/dL (8.4-11.0); CARBON DIOXIDE 29 mmol/L (23-29); CHLORIDE 100 mmol/L (98-107); CREATININE 1.22 mg/dL (0.55-1.30); GFR AFRICAN AMERICAN 76 mL/min (>90); GLUCOSE 157 mg/dL (74-106); POTASSIUM 4.1 mmol/L (3.5-5.1); SODIUM SERUM 139 mmol/L (136-145); TOTAL BILIRUBIN 0.6 mg/dL (0.0-1.0); TOTAL PROTEIN, SERUM 8.8 g/dL (6.4-8.3); UREA NITROGEN, BLOOD 20 mg/dL (8-21)
[2023-11-24 13:48] LABS: GFR NON AFRICAN-AMERICAN 63 mL/min (>90)
[2023-11-24 13:50] LABS: BILIRUBIN,DIRECT 0.2 mg/dL (0.0-0.3)
[2023-11-24 13:56] LABS: BASOPHILS # (AUTO) 0.1 K/uL (0.0-0.2); BASOPHILS % (AUTO) 0.4 % (0.0-2.0); HEMATOCRIT 44.8 % (36-54); HEMOGLOBIN 14.2 g/dL (14.0-18.0); LYMPHOCYTES # (AUTO) 0.9 K/uL (1.0-5.5); LYMPHOCYTES % (AUTO) 4.2 % (20.5-51.5); MEAN CORPUSCULAR HEMOGLOBIN 26 pg (27-31); MEAN CORPUSCULAR HGB CONC 32 % (32-36); MEAN CORPUSCULAR VOLUME 81 fL (79.0-98.0); MONOCYTES # (AUTO) 0.8 K/uL (0.0-1.0); MONOCYTES % (AUTO) 3.7 % (1.7-9.3); NEUTROPHILS % (AUTO) 91.7 % (40.0-70.0); PLATELET COUNT (AUTO) 217 K/uL (130-430); RED BLOOD CELL COUNT(AUTO) 5.55 MIL/uL (4.2-6.2); RED CELL DISTRIBUTION WIDTH 15.9 % (9.0-15.0); WHITE BLOOD COUNT (AUTO) 20.7 K/uL (4.8-10.8)
[2023-11-24 14:18] LABS: BILIRUBIN,URINE 1+ (NEGATIVE); BLOOD, URINE 2+ (NEGATIVE); CLARITY/URINE SL CLOUDY (CLEAR); COLOR,URINE YELLOW (YELLOW); GLUCOSE,URINE NEGATIVE (NEGATIVE); KETONES,URINE TRACE (NEGATIVE); LEUKOCYTE ESTERASE ,URINE 1+ (NEGATIVE); NITRITE, URINE NEGATIVE (NEGATIVE); PROTEIN URINE 2+ (NEGATIVE)
[2023-11-24] MEDS ORDERED: cefTRIAXone 2 GM VIAL ONE (14:26)
[2023-11-24 14:40] LABS: BACTERIA,URINE MANY /HPF (None Seen); RBC,URINE NONE SEEN /HPF (0-3); WBC,URINE 50-80 /HPF (0-3)
[2023-11-24 14:41] LABS: MUCUS,URINE None Seen /LPF (None Seen)
[2023-11-24] MEDS: hydrALAZINE HCL 20 MG/ML VIAL IVP ONE ×2 (15:37→17:56)
[2023-11-24] MEDS ORDERED: OXYB5TAB22 PO (17:08)
[2023-11-24] MEDS ORDERED: GABA-331 PO (17:08)
[2023-11-24] MEDS ORDERED: CARI350T27 PO (17:08)
[2023-11-24] MEDS ORDERED: LISI10TA PO (17:08)
[2023-11-24] MEDS ORDERED: ALBU8.5H8 PO (17:08)
[2023-11-24] MEDS: CARVEDILOL 25 MG TABLET (COREG) PO ONE (17:54)
[2023-11-24] MEDS: ONDANSETRON HCL 4 MG/2 ML VIAL IVP ONE (17:55)
[2023-11-24] MEDS ORDERED: ACETAMINOPHEN 325 MG TABLET PO PRN (18:30)
[2023-11-24] MEDS ORDERED: NALOXONE HCL 0.4 MG/ML AMP (NARCAN) IVP PRN (23:00)
[2023-11-24] MEDS: ONDANSETRON 4 MG ODT TAB TL PRN (23:53)
[2023-11-24] MEDS: carisoprodoL 350 MG TABLET PO SCH (23:54)
[2023-11-24] MEDS: GABAPENTIN 300 MG CAPSULE PO SCH (23:54)
[2023-11-24] MEDS: HYDROcodone/ACETAMIN 10-325 MG TAB PO PRN (23:55)
[2023-11-25] VITALS (8 sets, daily range): BP systolic 104–131; PULSE 74–99; RESP 18; TEMP 97.2–98.8; O2SAT 94–99
[2023-11-25] MEDS: oxyBUTYnin chloride 5 MG TABLET ONE (01:39)
[2023-11-25 04:31] LABS: BASOPHILS # (AUTO) 0.1 K/uL (0.0-0.2); BASOPHILS % (AUTO) 0.4 % (0.0-2.0); EOSINOPHILS % (AUTO) 0.1 % (0.0-4.0); HEMATOCRIT 38.4 % (36-54); HEMOGLOBIN 12.4 g/dL (14.0-18.0); LYMPHOCYTES # (AUTO) 0.9 K/uL (1.0-5.5); LYMPHOCYTES % (AUTO) 6.6 % (20.5-51.5); MEAN CORPUSCULAR HEMOGLOBIN 26 pg (27-31); MEAN CORPUSCULAR HGB CONC 32 % (32-36); MEAN CORPUSCULAR VOLUME 80 fL (79.0-98.0); MONOCYTES # (AUTO) 1.4 K/uL (0.0-1.0); MONOCYTES % (AUTO) 9.8 % (1.7-9.3); NEUTROPHILS # (AUTO) 11.9 K/uL (1.8-7.7); NEUTROPHILS % (AUTO) 83.1 % (40.0-70.0); PLATELET COUNT (AUTO) 178 K/uL (130-430); RED BLOOD CELL COUNT(AUTO) 4.82 MIL/uL (4.2-6.2); RED CELL DISTRIBUTION WIDTH 15.4 % (9.0-15.0); WHITE BLOOD COUNT (AUTO) 14.3 K/uL (4.8-10.8)
[2023-11-25 05:10] LABS: ALBUMIN 2.7 g/dL (3.4-4.8); CALCIUM 8.3 mg/dL (8.4-11.0); CREATININE 1.02 mg/dL (0.55-1.30); TOTAL BILIRUBIN 0.4 mg/dL (0.0-1.0)
[2023-11-25] MEDS: lisinopriL 20 MG TABLET PO SCH (08:56)
[2023-11-25] MEDS: oxyBUTYnin chloride 5 MG TABLET PO SCH (10:08)
[2023-11-26 00:30] VITALS: BP_SYST 91; PULSE 89; RESP 16; TEMP 97.4; O2SAT 95
[2023-11-26 06:56] LABS: BASOPHILS # (AUTO) 0.1 K/uL (0.0-0.2); BASOPHILS % (AUTO) 0.6 % (0.0-2.0); EOSINOPHILS % (AUTO) 0.5 % (0.0-4.0); HEMATOCRIT 39.5 % (36-54); HEMOGLOBIN 12.4 g/dL (14.0-18.0); LYMPHOCYTES # (AUTO) 1.5 K/uL (1.0-5.5); LYMPHOCYTES % (AUTO) 16.1 % (20.5-51.5); MEAN CORPUSCULAR HEMOGLOBIN 26 pg (27-31); MEAN CORPUSCULAR HGB CONC 31 % (32-36); MEAN CORPUSCULAR VOLUME 82 fL (79.0-98.0); MONOCYTES % (AUTO) 10.7 % (1.7-9.3); NEUTROPHILS # (AUTO) 6.6 K/uL (1.8-7.7); NEUTROPHILS % (AUTO) 72.1 % (40.0-70.0); PLATELET COUNT (AUTO) 173 K/uL (130-430); RED BLOOD CELL COUNT(AUTO) 4.83 MIL/uL (4.2-6.2); RED CELL DISTRIBUTION WIDTH 15.7 % (9.0-15.0); WHITE BLOOD COUNT (AUTO) 9.1 K/uL (4.8-10.8)
[2023-11-26 08:00] LABS: ALBUMIN 2.7 g/dL (3.4-4.8); CALCIUM 8.7 mg/dL (8.4-11.0); CREATININE 1.86 mg/dL (0.55-1.30); POTASSIUM 4.4 mmol/L (3.5-5.1); TOTAL BILIRUBIN 0.2 mg/dL (0.0-1.0)
[2023-11-26 08:06] LABS: FREE PSA <0.02 ng/mL; PROSTATE SPECIFIC AG TOTAL <0.1 ng/mL (0.0-4.0)
[2023-11-26 09:20] VITALS: BP_SYST 114; PULSE 101; RESP 16; TEMP 97.6; O2SAT 94
[2023-11-26 09:23] VITALS: O2SAT 96
[2023-11-26 12:53] VITALS: BP_SYST 115; PULSE 105; RESP 16; TEMP 98.5; O2SAT 94
[2023-11-26 16:55] VITALS: BP_SYST 130; PULSE 85; RESP 18; TEMP 98.6; O2SAT 95
[2023-11-26] MEDS: MEROPENEM 1 GM in NS 100 ML IV SCH (18:03)
[2023-11-26 20:00] VITALS: BP_SYST 100; PULSE 80; RESP 18; TEMP 98.7; O2SAT 95
[2023-11-27] VITALS (7 sets, daily range): BP systolic 96–125; PULSE 79–97; RESP 15–18; TEMP 97.5–98.7; O2SAT 95–96
[2023-11-27] MEDS: 0.45% NACL 1,000 ML IV SCH (12:00)
[2023-11-28] VITALS: BP_SYST 128; PULSE 78; RESP 18; TEMP 97.1; O2SAT 98
[2023-11-28] MEDS: MAG-AL HYDROX/SIMETH 30 ML UDC PO PRN (00:54)
[2023-11-28 05:24] LABS: BASOPHILS # (AUTO) 0.1 K/uL (0.0-0.2); BASOPHILS % (AUTO) 0.8 % (0.0-2.0); EOSINOPHILS # (AUTO) 0.2 K/uL (0.0-0.4); EOSINOPHILS % (AUTO) 2.6 % (0.0-4.0); HEMOGLOBIN 11.5 g/dL (14.0-18.0); LYMPHOCYTES # (AUTO) 2.4 K/uL (1.0-5.5); LYMPHOCYTES % (AUTO) 31.6 % (20.5-51.5); MEAN CORPUSCULAR HEMOGLOBIN 26 pg (27-31); MEAN CORPUSCULAR HGB CONC 32 % (32-36); MEAN CORPUSCULAR VOLUME 80 fL (79.0-98.0); MONOCYTES # (AUTO) 0.8 K/uL (0.0-1.0); MONOCYTES % (AUTO) 10.7 % (1.7-9.3); NEUTROPHILS # (AUTO) 4.1 K/uL (1.8-7.7); NEUTROPHILS % (AUTO) 54.3 % (40.0-70.0); PLATELET COUNT (AUTO) 160 K/uL (130-430); RED CELL DISTRIBUTION WIDTH 15.9 % (9.0-15.0); WHITE BLOOD COUNT (AUTO) 7.6 K/uL (4.8-10.8)
[2023-11-28 05:46] LABS: PROTHROMBIN TIME 10.6 SECS (9.5-12.5)
[2023-11-28 05:49] LABS: CALCIUM 8.2 mg/dL (8.4-11.0); CREATININE 1.08 mg/dL (0.55-1.30); POTASSIUM 3.8 mmol/L (3.5-5.1)
[2023-11-28 07:45] VITALS: BP_SYST 129; PULSE 82; RESP 15; TEMP 97.8; O2SAT 94
[2023-11-28 08:30] VITALS: O2SAT 94
[2023-11-28] MEDS: ERTAPENEM SODIUM 1 GM in NS 50 ML IV SCH (10:39)
[2023-11-28 11:10] VITALS: BP_SYST 129; PULSE 84; RESP 18; TEMP 98.2; O2SAT 96
[2023-11-28] MEDS ORDERED: PRO40 PO (13:48)
[2023-11-28 15:50] VITALS: BP_SYST 140; PULSE 74; RESP 16; TEMP 97.6; O2SAT 98
[2023-11-28 16:14] VITALS: BP_SYST 129; PULSE 84; RESP 18; TEMP 98.2; O2SAT 96
== END 2023-11-28 16:50 | disposition home health service (06) | DRG 871 ==
LOC: SED 12:13 → STU 16:29 → SMU 11-26 13:48
PROVIDERS: ADMIT Internal Medicine; ATTEND Internal Medicine
DX: A41.51 Sepsis due to Escherichia coli [E. coli] (principal); N17.0 Acute kidney failure with tubular necrosis; N39.0 Urinary tract infection, site not specified; K20.90 Esophagitis, unspecified without bleeding; J44.9 Chronic obstructive pulmonary disease, unspecified; I10 Essential (primary) hypertension; N48.29 Other inflammatory disorders of penis; G62.9 Polyneuropathy, unspecified; Z85.46 Personal history of malignant neoplasm of prostate; Z90.79 Acquired absence of other genital organ(s); Z79.899 Other long term (current) drug therapy; Z88.8 Allergy status to other drugs, medicaments and biological substances
CPT/HCPCS: 36415; 71045; 80048; 80053; 80076; 81000; 81001; 81015; 83605; 84153; 84484; 85025; 85610; 85730; 87040; 87086; 87186; 93005; 99291; G0378; J0360; J0696; J1335; J1956; J2185; J2405; Q0162